=== PATIENT | female | born 1975 | race Caucasian/White ===

== ENCOUNTER 2022-12-09 10:30 | Observation (INO) ==
[2022-12-09 11:10] LABS: Basophils # (auto) 0.04 K/uL (0-0.2); Basophils % (auto) 0.7 %; Eosinophils # (auto) 0.21 K/uL (0-0.50); Eosinophils % (auto) 3.6 %; Hematocrit (blood only) 40.6 % (34.1-44.9); Hemoglobin 13.4 g/dl (12.0-16.0); Immature Granulocytes # (auto) 0.01 K/uL (0.00-0.02); Immature Granulocytes % (auto) 0.2 %; Lymphocytes # (auto) 1.96 K/uL (1.2-3.4); Lymphocytes % (auto) 33.6 %; Mean Platelet Volume 9.8 fL (9.4-12.3); Monocytes # (auto) 0.32 K/uL (0.24-0.82); Monocytes % (auto) 5.5 %; Neutrophils % (auto) 56.4 %; Platelet Count 326 K/uL (130-400); RDW Coefficient of Variation 12.3 % (11.5-14.5); RDW Standard Deviation 41.1 fL (36.4-46.3); Red Blood Count 4.46 M/uL (3.93-5.22); White Blood Count 5.84 K/ul (4.8-10.8)
[2022-12-09 11:28] LABS: Albumin Globulin Ratio 1.6 (0.9-2); Albumin Level 4.3 gm/dl (3.4-5.0); BUN Creatinine Ratio 11.1 (10-20); Bilirubin,Total 0.8 mg/dl (0.2-1.0); Calcium 8.9 mg/dl (8.5-10.1); Creatinine Clr Calc Pharmacy 103.1 ml/min; Est GFR (African American) 117.2 ml/min; Est GFR (Non-African American) 101.1 ml/min; Globulin 2.7 gm/dl (2.5-4.0); Potassium 3.9 mmol/L (3.5-5.1)
[2022-12-09 11:33] LABS: POC Urine Bilirubin Negative (Negative); POC Urine Blood Negative (Negative); POC Urine Glucose Normal (Normal); POC Urine Ketones Negative (Negative); POC Urine Leukocytes 1+ (Negative); POC Urine Nitrite Negative (Negative); POC Urine Protein 1+ (Negative); POC Urine Urobilinogen Normal (Normal); POC Urine pH 8 (4.5-7.5)
[2022-12-09] MEDS ORDERED: KETOROLAC TROMETHAMINE 15 MG/ML VIAL IV ONE (11:38)
--- NOTE | 2022-12-09 11:57 | Emergency Department Note ---
History of Present Illness General Chief complaint: Flank Pain Stated complaint: REFERRED BY Lisa SCHWARTZ SIDE FLANK PAIN Time Seen by Provider: 12/09/22 11:02 History of Present Illness Maximum Pain Intensity: 8 Patient is a 47-year-old female with past medical history significant for GERD, hypertension, restless leg syndrome, who presents emergency department for evaluation of left sided abdominal pain after having a colonoscopy yesterday. Procedure was at noon yesterday, performed by Dr. Dickson. It was a screening colonoscopy. She states that the procedure went well. She began to notice pain in the left lateral abdomen when she came out of anesthesia, and mentioned to the staff there but nothing was done. She states that the pain persisted, and has progressively gotten worse since the procedure yesterday. She states it runs from the left hip to the left upper rib cage, and then states the pain in her ribs that she was up into the left chest when she takes a deep breath. She is passing gas, she was able to eat, but did not have much of an appetite. There is been no vomiting. She has not had a bowel movement. She tried taking ibuprofen last night without relief. She currently rates her pain an 8/10. She was little bit nauseous this morning. She called the doctor's office, and they got back to her later this morning and suggested she go to the emergency departm ent for evaluation. Home Medications Medication Instructions Recorded Confirmed Type omeprazole 20 mg capsule,delayed 20 mg PO DAILYBB 02/20/19 12/09/22 History release lorazepam 1 mg tablet 1 mg PO HS PRN Sleep 11/20/20 12/09/22 History norethindrone 1.5 mg-ethinyl 1 tab PO DAILY 12/09/22 12/09/22 History estradiol 30 mcg(21)/iron 75 mg(7) tablet (Stella Fe 1.5/30 (28)) ropinirole 1 mg tablet 1 mg PO QPM 12/09/22 12/09/22 History semaglutide 1 mg/dose (4 mg/3 mL) 1 mg subcut WK 12/09/22 12/09/22 History subcutaneous pen injector (Ozempic) semaglutide 7 mg tablet (Rybelsus) 7 mg PO DAILY 12/09/22 12/09/22 History Allergies Allergy/AdvReac Type Severity Reaction Status Date / Time lisinopril Allergy Severe angioedema Verified 12/09/22 16:35 acetazolamide Allergy Unknown . Verified 12/09/22 16:35 amoxicillin Allergy Unknown . Verified 12/09/22 16:35 prochlorperazine Allergy Unknown . Verified 12/09/22 16:35 Past Med/Surg History Medical History DJD (degenerative joint disease) GERD (gastroesophageal reflux disease) Hypertension Ovarian cyst Restless leg syndrome Surgical History H/O wisdom tooth extraction History of colonoscopy History of esophagogastroduodenoscopy (EGD) History of facial surgery History of lumbar discectomy Social History Smoking Status: Never smoker Second Hand Exposure: No; Do You Dip or Chew Tobacco: No; Tobacco Cessation Education Requested by Patient: No Hx Alcohol Use: Yes Alcohol type: wine Hx Substance Use: No Preferred Language: Kiswahili Communication Ability: Effective Oxygen Equipment Technician Required: No Beliefs That Will Affect Care: None Current Living Situation: Spouse Other Information That Helps Us Care for You: No Feels Safe at Home: Yes Assistive Devices: None Review of Systems A total of 10 systems reviewed and were otherwise negative Physical Exam Vital Signs Vital Signs - 24 hr 12/09/22 10:36 Temperature 36.4 C L Temperature Source Temporal Artery Scan Pulse Rate 78 Pulse Rhythm Regular Respiratory Rate 16 Respiratory Effort / Characteristics Non-Labored Spontaneous Respiratory Depth Normal Blood Pressure 148/84 H Blood Pressure Mean 105 Pulse Oximetry 97 Oxygen Delivery Method Room Air Sepsis Recent Fever Within 48 Hours No Sepsis New/Unexplained Change in Mental Status No Sepsis Action Taken by Nursing No Action Required CONSTITUTIONAL: Patient is a well-appearing 47-year-old female who is awake and alert and in mild distress due to her stated complaint laying on the gurney. EYES: Pupils equal, round, reactive to light and accommodation. EOMs intact without nystagmus. Sclera are anicteric. CARDIOVASCULAR: Regular rate and rhythm. Peripheral pulses easy to palpable. RESPIRATORY: Breath sounds equal and clear to auscultation. Full and equal chest expansion without accessory muscle use or retractions. GI: Bowel sounds are present. The abdomen is soft, nondistended, tender to percussion in the suprapubic region, the left lower quadrant and the left upper quadrant. She is tender to palpation in these areas as well, but no guarding or rigidity. No rebound tenderness. The right side of the abdomen is benign. No organomegaly. No pulsatile masses. MUSCULOSKELETAL: Full range of motion of extremities x 4 with good strength. No cyanosis, edema, joint tenderness or swelling. No deformity. INTEGUMENTARY: No lesions or rash, normal skin turgor. LYMPH: No lymphadenopathy. Course Course The patient was seen and evaluated as above. External medical records are reviewed. She presents the emergency department for evaluation of left-sided abdominal pain after having a colonoscopy yesterday. IV lock was initiated and laboratory studies were collected. CBC with differential, CMP, lipase and urin alysis were performed. She initially declined narcotic medication and requested Toradol, she was given 10 mg IV. KUB and single view chest x-rays were obtained. Blood work notes a normal white count. No anemia. No electrolyte or renal function abnormalities noted. Transaminases are normal. Urine microscopy notes leukocyte Estrace, trace WBCs and RBCs with 1+ bacteria. Sample is contaminated with greater than 30 epithelial cells. Culture is pending. Chest x-ray is clear. No pneumothorax. No pleural effusion. KUB notes a nonobstructive bowel gas pattern. No pneumoperitoneum or pneumatosis. Patient was reassessed. Laboratory studies, x-rays were reviewed with her. She had little relief with the Toradol, and was agreeable to something additional for her pain. She was given fentanyl 50 mcg and Zofran 4 mg IV. Discussed with her ordering a CT scan of the abdomen and pelvis to evaluate her pain and she was in agreement. CT scan notes trace perisplenic fluid which measures above water attenuation is concerning for trace perisplenic hemorrhage, raising the possibility of a splenic injury. No active extravasation. No discrete splenic laceration identified. No pneumoperitoneum. No bowel wall thickening. Patient case was reviewed with attending physician, Dr. Henao. Patient was reassessed. CT scan findings were reviewed with her. She did report that her pain and improved, and rated it a 4/10. She did request additional medication for pain however and was given additional fentanyl 50 mcg IV. Her case was reviewed with general surgery, Dr. Forman and Beverley Cárdenas PA-C who evaluated the patient in the emergency department, and have agreed to admit her for monitoring. Please refer to surgical H&P for further information. Administered Medications Sodium Chloride (Nss 1000ml) 1,000 mls @ 80 mls/hr IV .[id number] MARYBEL Stop: 01/08/23 17:43 Last Admin: 12/09/22 18:10 Dose: 80 mls/hr Documented By: PRATIBHA Oxycodone HCl (Oxycodone Hcl Ir 5 Mg Tab (Immediate Release)) 5 mg PO Q4H PRN PRN Reason: MODERATE Pain (4,5,6) & Pre PT Stop: 12/23/22 17:43 Last Admin: 12/09/22 19:19 Dose: 5 mg Documented By: YANCY Ropinirole HCl (Ropinirole Hcl 0.25 Mg Tablet) 0.5 mg PO HS [facility] Stop: 01/08/23 20:59 Last Admin: 12/09/22 20:18 Dose: 0.5 mg Documented By: YANCY Discontinued Medications Fentanyl Citrate (Fentanyl Citrate 100 Mcg/2 Ml Vial) 50 mcg IV NOW STA Stop: 12/09/22 12:41 Last Admin: 12/09/22 12:52 Dose: 50 mcg Documented By: APOLONIA Fentanyl Citrate (Fentanyl Citrate 100 Mcg/2 Ml Vial) 50 mcg IV NOW STA Stop: 12/09/22 15:10 Last Admin: 12/09/22 15:25 Dose: 50 mcg Documented By: APOLONIA Sodium Chloride (Nss 1000ml) 1,000 mls @ 250 mls/hr IV .Q4H MARYBEL Stop: 01/08/23 15:59 Last Infusion: 12/09/22 18:09 Dose: 0 mls/hr Documented By: Admin: 12/09/22 15:58 Dose: 250 mls/hr Documented By: APOLONIA Ioversol (Optiray 350 100ml) 94 ml IV ONCE ONE Stop: 12/09/22 13:14 Last Admin: 12/09/22 13:13 Dose: 94 ml Documented By: JEFF Ketorolac Tromethamine (Ketorolac Tromethamine 15 Mg/Ml Vial) 10 mg IV NOW ONE Stop: 12/09/22 11:39 Last Admin: 12/09/22 11:53 Dose: 10 mg Documented By: APOLONIA Ondansetron HCl (Ondansetron Inj 2 Mg/Ml 2 Ml Vial) 4 mg IV NOW STA Stop: 12/09/22 12:41 Last Admin: 12/09/22 12:50 Dose: 4 mg Documented By: APOLONIA Ondansetron HCl (Ondansetron Inj 2 Mg/Ml 2 Ml Vial) 4 mg IV NOW STA Stop: 12/09/22 15:53 Last Admin: 12/09/22 15:55 Dose: 4 mg Documented By: APOLONIA Medical Decision Making Differential Diagnosis Differential diagnoses considered include urinary tract infection, kidney infection, kidney stone, bowel perforation, colonic distention, splenic injury, abscess, perforation, obstruction, among others. Medical Records Attestation: I reviewed the patient's medical records. Home Medications Current Medication List: was personally reviewed by me Laboratory Data Attestation: I reviewed the patient's lab results. 12/09/22 10:50 12/09/22 10:50 Lab Results 12/09/22 12/09/22 12/09/22 Range/Units 10:50 10:50 11:15 WBC 5.84 (4.8-10.8) K/ul RBC 4.46 (3.93-5.22) M/uL Hgb 13.4 (12.0-16.0) g/dl Hct 40.6 (34.1-44.9) % MCV 91.0 (80.0-100.0) fL MCH 30.0 (25.0-34.0) pg MCHC 33.0 (32.0-36.0) g/dL RDW Std Deviation 41.1 (36.4-46.3) fL RDW Coeff of Angela 12.3 (11.5-14.5) % Plt Count 326 (130-400) K/uL MPV 9.8 (9.4-12.3) fL Immature Gran % (Auto) 0.2 % Neut % (Auto) 56.4 % Lymph % (Auto) 33.6 % [place] % (Auto) 5.5 % Eos % (Auto) 3.6 % Baso % (Auto) 0.7 % Neut # (Auto) 3.30 (1.4-6.5) K/uL Lymph # (Auto) 1.96 (1.2-3.4) K/uL [place] # (Auto) 0.32 (0.24-0.82) K/uL Eos # (Auto) 0.21 (0-0.50) K/uL Baso # (Auto) 0.04 (0-0.2) K/uL Immature Gran # (Auto) 0.01 (0.00-0.02) K/uL Sodium 139 (136-145) mmol/L Potassium 3.9 (3.5-5.1) mmol/L Chloride 107 (98-107) mmol/L Carbon Dioxide 25 (21-32) mmol/L Anion Gap 7 (3-11) BUN 8 (6-23) mg/dl Creatinine 0.72 (0.6-1.2) mg/dl Est Cr Clr Drug Dosing 103.1 ml/min Est GFR ( Amer) 117.2 ml/min Est GFR (Non-Af Amer) 101.1 ml/min BUN/Creatinine Ratio 11.1 (10-20) Glucose 99 (70-99(Fasting)) mg/dl Calcium 8.9 (8.5-10.1) mg/dl Total Bilirubin 0.8 (0.2-1.0) mg/dl AST 11 L (13-39) U/L ALT 10 (7-52) U/L Alkaline Phosphatase 44 (34-104) U/L Total Protein 7.0 (6.0-8.3) gm/dl Albumin 4.3 (3.4-5.0) gm/dl Globulin 2.7 (2.5-4.0) gm/dl Albumin/Globulin Ratio 1.6 (0.9-2) Urine Color Yellow Urine Appearance Turbid A (Clear) Urine pH 8.5 H (4.5-7.5) POC Urine pH (4.5-7.5) Ur Specific [place] 1.016 (1.000-1.030) Urine Protein Negative (Negative) POC Urine Protein (Negative) Urine Glucose (UA) Negative (Negative) POC Ur Glucose (UA) (Normal) Urine Ketones Negative (Negative) POC Urine Ketones (Negative) Urine Blood Negative (Negative) POC Urine Blood (Negative) Urine Nitrite Negative (Negative) POC Urine Nitrite (Negative) Urine Bilirubin Negative (Negative) POC Urine Bilirubin (Negative) Urine Urobilinogen Negative (Negative) POC Urine Urobilinogen (Normal) Ur Leukocyte Esterase 2+ H (Negative) POC U Leukocyte Esteras (Negative) Urine WBC (Auto) 5-10 H (0-5) /hpf Urine RBC (Auto) 5-10 H (0-4) /hpf U Hyaline Cast (Auto) 1-5 (0-5) /lpf U Epithel Cells (Auto) >30 H (0-5) /lpf Urine Bacteria (Auto) 1+ H (Negative) 12/09/22 Range/Units 11:32 WBC (4.8-10.8) K/ul RBC (3.93-5.22) M/uL Hgb (12.0-16.0) g/dl Hct (34.1-44.9) % MCV (80.0-100.0) fL MCH (25.0-34.0) pg MCHC (32.0-36.0) g/dL RDW Std Deviation (36.4-46.3) fL RDW Coeff of Angela (11.5-14.5) % Plt Count (130-400) K/uL MPV (9.4-12.3) fL Immature Gran % (Auto) % Neut % (Auto) % Lymph % (Auto) % [place] % (Auto) % Eos % (Auto) % Baso % (Auto) % Neut # (Auto) (1.4-6.5) K/uL Lymph # (Auto) (1.2-3.4) K/uL [place] # (Auto) (0.24-0.82) K/uL Eos # (Auto) (0-0.50) K/uL Baso # (Auto) (0-0.2) K/uL Immature Gran # (Auto) (0.00-0.02) K/uL Sodium (136-145) mmol/L Potassium (3.5-5.1) mmol/L Chloride (98-107) mmol/L Carbon Dioxide (21-32) mmol/L Anion Gap (3-11) BUN (6-23) mg/dl Creatinine (0.6-1.2) mg/dl Est Cr Clr Drug Dosing ml/min Est GFR ( Amer) ml/min Est GFR (Non-Af Amer) ml/min BUN/Creatinine Ratio (10-20) Glucose (70-99(Fasting)) mg/dl Calcium (8.5-10.1) mg/dl Total Bilirubin (0.2-1.0) mg/dl AST (13-39) U/L ALT (7-52) U/L Alkaline Phosphatase (34-104) U/L Total Protein (6.0-8.3) gm/dl Albumin (3.4-5.0) gm/dl Globulin (2.5-4.0) gm/dl Albumin/Globulin Ratio (0.9-2) Urine Color Urine Appearance (Clear) Urine pH (4.5-7.5) POC Urine pH 8 H (4.5-7.5) Ur Specific [place] (1.000-1.030) Urine Protein (Negative) POC Urine Protein 1+ H (Negative) Urine Glucose (UA) (Negative) POC Ur Glucose (UA) Normal (Normal) Urine Ketones (Negative) POC Urine Ketones Negative (Negative) Urine Blood (Negative) POC Urine Blood Negative (Negative) Urine Nitrite (Negative) POC Urine Nitrite Negative (Negative) Urine Bilirubin (Negative) POC Urine Bilirubin Negative (Negative) Urine Urobilinogen (Negative) POC Urine Urobilinogen Normal (Normal) Ur Leukocyte Esterase (Negative) POC U Leukocyte Esteras 1+ H (Negative) Urine WBC (Auto) (0-5) /hpf Urine RBC (Auto) (0-4) /hpf U Hyaline Cast (Auto) (0-5) /lpf U Epithel Cells (Auto) (0-5) /lpf Urine Bacteria (Auto) (Negative) Imaging Data Attestation: I personally reviewed and interpreted this imaging study as fol lows: Radiologist's Impression: KUB X-Ray 12/09/22 11:03 KUB HISTORY: Acute left-sided rib and abdominal pain LEFT ABD PAIN, COLONOSCOPY YEST, EVAL PERFORATION COMPARISON: Chest radiograph of same day, CT abdomen and pelvis 08/16/2021 FINDINGS: Nonobstructive bowel gas pattern. Punctate metallic density focus is noted overlying S1. Pelvic basin calcifications suggestive of phleboliths. No renal calculi. No ureteral calculi. No pneumoperitoneum or pneumatosis. No fracture. IMPRESSION: Nonobstructive bowel gas pattern. ACT 112: Negative or not required by law. The above report was generated using voice recognition software. It may contain grammatical, syntax or spelling errors. Electronically signed by: Nhan Cortez M.D. 12/09/2022 12:13 PM Chest X-Ray 12/09/22 11:36 XR chest 1V portable HISTORY: LEFT RIB PAIN S/P COLONOSCOPY COMPARISON: Chest 11/20/2020. FINDINGS: The lungs are clear. Cardiac silhouette is normal in size. No pleural effusions. No pneumothorax. IMPRESSION: No acute process. ACT 112: Negative or not required by law. Electronically signed by: Jonn Christian M.D. 12/09/2022 12:15 PM Abdomen/Pelvis CT 12/09/22 12:40 CT OF THE ABDOMEN AND PELVIS WITH CONTRAST CLINICAL HISTORY: LEFT SIDED ABD PAIN S/P COLONOSCOPY COMPARISON STUDY: CT of the abdomen and pelvis August 16, 2021 and KUB performed earlier today TECHNIQUE: Following IV administration of 94 mL of Optiray, axial images of the abdomen and pelvis were obtained from the lung bases to the proximal femurs. Images were reviewed in the axial, sagittal, and coronal planes. IV contrast was administered without complication. Automated exposure control was utilized for the study. A dose lowering technique was utilized adhering to the principles of ALARA. CT DOSE: 378.63 mGy.cm FINDINGS: Lung bases are unremarkable. No pneumatosis, free air or portal venous gas is present. The liver, adrenal glands, kidneys and pancreas are normal with the exception of a few subcentimeter right renal lesions which are too small to characterize. There is no biliary or pancreatic ductal dilatation. Note is made of trace perisplenic fluid along the inferior aspect of the spleen. This measures above water attenuation. No discrete splenic laceration is identified. There is no active extravasation. Caliber and wall thickness of small and large bowel are normal. There is trace fluid within the pelvis. A 4.3 cm enhancing lesion within the right uterine fundus is unchanged since prior exam. This favors a fibroid. The ovaries are not enlarged. Major vasculature is patent. IMPRESSION: 1. No pneumoperitoneum. No bowel wall thickening. 2. Trace perisplenic fluid which measures above water attenuation. This favors trace perisplenic hemorrhage and raises the possibility of a splenic injury. No active extravasation. If progressive abdominal pain, short-term follow-up CT is recommended to ensure stability/resolution. 3. 4.3 cm fundal fibroid. ACT 112: Negative or not required by law. Electronically signed by: Franco Leon M.D. 12/09/2022 2:02 PM MDM Narrative See ED Course. Impression & Plan Splenic hemorrhage Discharge Plan Visit Data Chief Complaint: Flank Pain Stated Complaint: REFERRED BY Lisa SCHWARTZ SIDE FLANK PAIN ED Provider: Aubrey Henao ED Midlevel Provider: Mart Hensley Discharge Problem: Splenic hemorrhage Patient Disposition: Admitted As Inpatient Discharge Instructions Interventions: ED Discharge Assessment Last Done: 12/09/22 17:25
--- NOTE | 2022-12-09 12:14 | XRay Report ---
KUB HISTORY: Acute left-sided rib and abdominal pain LEFT ABD PAIN, COLONOSCOPY YEST, EVAL PERFORATION COMPARISON: Chest radiograph of same day, CT abdomen and pelvis 08/16/2021 FINDINGS: Nonobstructive bowel gas pattern. Punctate metallic density focus is noted overlying S1. Pe lvic basin calcifications suggestive of phleboliths. No renal calculi. No ureteral calculi. No pneum operitoneum or pneumatosis. No fracture. IMPRESSION: Nonobstructive bowel gas pattern. ACT 112: Negative or not required by law. The above report was generated using voice recognition software. It may contain grammatical, syntax o r spelling errors. Electronically signed by: Nhan Cortez M.D. 12/09/2022 12:13 PM
--- NOTE | 2022-12-09 12:16 | XRay Report ---
XR chest 1V portable HISTORY: LEFT RIB PAIN S/P COLONOSCOPY COMPARISON: Chest 11/20/2020. FINDINGS: The lungs are clear. Cardiac silhouette is normal in size. No pleural effusions. No pneumot horax. IMPRESSION: No acute process. ACT 112: Negative or not required by law. Electronically signed by: Jonn Christian M.D. 12/09/2022 12:15 PM
[2022-12-09] MEDS ORDERED: ONDANSETRON INJ 2 MG/ML 2 ML VIAL IV STA ×2 (12:40→15:52)
[2022-12-09] MEDS ORDERED: fentaNYL citrate 100 MCG/2 ML VIAL IV STA ×2 (12:40→15:09)
[2022-12-09 12:45] LABS: Appearance Urine Turbid (Clear); Bacteria Urine Automated 1+ (Negative); Bilirubin Urine Negative (Negative); Blood Urine Negative (Negative); Color Urine Yellow; Epithelial Cell Urine Auto >30 /lpf (0-5); Glucose Urine UA Negative (Negative); Ketones Urine Negative (Negative); Leukocyte Esterase Urine 2+ (Negative); Nitrite Urine Negative (Negative); Protein Urine Negative (Negative); Specific Gravity Urine 1.016 (1.000-1.030); Urobilinogen Urine Negative (Negative); pH Urine 8.5 (4.5-7.5)
[2022-12-09] MEDS ORDERED: OPTIRAY 350 100ml IV ONE (13:13)
--- NOTE | 2022-12-09 14:03 | CT Scan Report ---
CT OF THE ABDOMEN AND PELVIS WITH CONTRAST CLINICAL HISTORY: LEFT SIDED ABD PAIN S/P COLONOSCOPY COMPARISON STUDY: CT of the abdomen and pelvis August 16, 2021 and KUB performed earlier today TECHNIQUE: Following IV administration of 94 mL of Optiray, axial images of the abdomen and pelvis we re obtained from the lung bases to the proximal femurs. Images were reviewed in the axial, sagittal, and coronal planes. IV contrast was administered without complication. Automated exposure control wa s utilized for the study. A dose lowering technique was utilized adhering to the principles of ALARA . CT DOSE: 378.63 mGy.cm FINDINGS: Lung bases are unremarkable. No pneumatosis, free air or portal venous gas is present. The liver, adrenal glands, kidneys and pancreas are normal with the exception of a few subcentimeter righ t renal lesions which are too small to characterize. There is no biliary or pancreatic ductal dilatat ion. Note is made of trace perisplenic fluid along the inferior aspect of the spleen. This measures a mirella water attenuation. No discrete splenic laceration is identified. There is no active extravasatio n. Caliber and wall thickness of small and large bowel are normal. There is trace fluid within the pe lvis. A 4.3 cm enhancing lesion within the right uterine fundus is unchanged since prior exam. This f avors a fibroid. The ovaries are not enlarged. Major vasculature is patent. IMPRESSION: 1. No pneumoperitoneum. No bowel wall thickening. 2. Trace perisplenic fluid which measures above water attenuation. This favors trace perisplenic hemo rrhage and raises the possibility of a splenic injury. No active extravasation. If progressive abdomi nal pain, short-term follow-up CT is recommended to ensure stability/resolution. 3. 4.3 cm fundal fibroid. ACT 112: Negative or not required by law. Electronically signed by: Franco Leon M.D. 12/09/2022 2:02 PM
[2022-12-09] MEDS ORDERED: SODIUM CHLORIDE 0.9% 1000ML 1,000 ML IV SCH (16:00)
--- NOTE | 2022-12-09 16:05 | History & Physical Report ---
Date of Service December 09, 2022 Assessment & Plan (1) Splenic hemorrhage: Plan: This is a 47y F with a PMH of GERD who presents to the [facility] on 12/09/22 with complaints of left sided flank pain after undergoing an outpatient colonoscopy yesterday. Due to the severity of the pain she presented to the ER where she underwent a CT a/p that showed trace perisplenic fluid, favoring hemorrhage, raising the possibility of a splenic injury. There is no active extravasation or pneumoperitoneum. Patient's vital signs are stable and she is not tachycardic or hypotensive. Labs show stable Hbg at 13.4, Cr: 0.7. On exam patient's abdomen is soft, non distended, with mild discomfort across the mid/upper left abdomen. No indications for acute surgical intervention. This should resolve with time and supportive care. Given severity of pain upon presentation we will admit the patient for overnight observation and keep comfortable with nausea/pain meds should she need them. Will repeat H/H tomorrow morning unless any clinical changes overnight. Clear liquids okay for now, if stable will advance tomorrow and likely discharge to home. History of Present Illness Primary Care Provider: Luigi Mtz MD This is a 47y F with a PMH of GERD who presents to the [facility] ED on 12/09/22 with complaints of left sided flank pain. Patient states she underwent a colonoscopy yesterday at [facility] with Dr. Dickson. Per patient she had a clean report. Following the procedure the patient developed left sided abdominal pain which was thought to be related to gas. She was discharged to home. Unfortunately her pain continued to worsen in severity rating it an 8/10 at its worst. It was made worse with movement, deep breaths, and eating. She felt it radiate to her shoulder and it felt stabbing in nature when she would eat. Due to the pain she presented to the ER where she underwent a CT a/p that showed trace perisplenic fluid, favoring hemorrhage, raising the possibility of a splenic injury. There is no active extravasation or pneumoperitoneum. The patient denies n/v, fevers/chills. No prior abdominal surgical history. No BM since yesterday. Only had water this morning. No recent trauma/falls/vehicle accidents. Allergies Allergy/AdvReac Type Severity Reaction Status Date / Time lisinopril Allergy Severe angioedema Verified 12/09/22 16:35 acetazolamide Allergy Unknown . Verified 12/09/22 16:35 amoxicillin Allergy Unknown . Verified 12/09/22 16:35 prochlorperazine Allergy Unknown . Verified 12/09/22 16:35 Home Medications Medication Instructions Recorded Confirmed Type omeprazole 20 mg capsule,delayed 20 mg PO DAILYBB 02/20/19 12/09/22 History release lorazepam 1 mg tablet 1 mg PO HS PRN Sleep 11/20/20 12/09/22 History norethindrone 1.5 mg-ethinyl 1 tab PO DAILY 12/09/22 12/09/22 History estradiol 30 mcg(21)/iron 75 mg(7) tablet (Stella Fe 1.5/30 (28)) ropinirole 1 mg tablet 1 mg PO QPM 12/09/22 12/09/22 History semaglutide 1 mg/dose (4 mg/3 mL) 1 mg subcut WK 12/09/22 12/09/22 History subcutaneous pen injector (Ozempic) semaglutide 7 mg tablet (Rybelsus) 7 mg PO DAILY 12/09/22 12/09/22 History oxycodone 5 mg tablet 5 - 10 mg PO .[id number] PRN pain, 12/10/22 Rx for initial therapy, max 6 tabs per day #5 tabs Past Med/Surg History Medical History DJD (degenerative joint disease) GERD (gastroesophageal reflux disease) Hypertension Ovarian cyst Restless leg syndrome Surgical History H/O wisdom tooth extraction History of colonoscopy History of esophagogastroduodenoscopy (EGD) History of facial surgery History of lumbar discectomy Social History Smoking Status: Never smoker Second Hand Exposure: No; Do You Dip or Chew Tobacco: No; Tobacco Cessation Education Requested by Patient: No Hx Alcohol Use: Yes Alcohol type: wine Hx Substance Use: No Preferred Language: Polish Communication Ability: Effective Surgical Brace Maker Required: No Beliefs That Will Affect Care: None Current Living Situation: Spouse Other Information That Helps Us Care for You: No Feels Safe at Home: Yes Assistive Devices: None Review of Systems Constitutional: no fever and no chills Respiratory: pain into L shoulder with deep breathing Cardiovascular: no chest pain Gastrointestinal: + abdominal pain (left sided, radiates to shoulder); no nausea, no vomiting and no blood in stools Physical Exam Physical Exam: awake, alert, no distress Constitutional: well developed and well nourished; no acute distress Respiratory: normal respiratory effort Cardiovascular: Rate/Rhythm: regular rate Gastrointestinal (Abdomen): Inspection/Auscultation: abdomen not distended Percussion/Palpation: + abdomen tender (discomfort elicited across L mid/upper abdomen) and abdomen soft Results & Data Results & Data ([facility]) Vital Signs (Past 12 Hours) Vital Signs Temp Pulse Resp BP Pulse Ox O2 Del Method 12/09/22 10:36 36.4 C L 78 16 148/84 H 97 [address] Air Diagnostic Findings [address] OF THE ABDOMEN AND PELVIS WITH CONTRAST CLINICAL HISTORY: LEFT SIDED ABD PAIN S/P COLONOSCOPY COMPARISON STUDY: CT of the abdomen and pelvis August 16, 2021 and KUB performed earlier today TECHNIQUE: Following IV administration of 94 mL of Optiray, axial images of the abdomen and pelvis were obtained from the lung bases to the proximal femurs. Images were reviewed in the axial, sagittal, and coronal planes. IV contrast was administered without complication. Automated exposure control was utilized for the study. A dose lowering technique was utilized adhering to the principles of ALARA. CT DOSE: 378.63 mGy.cm FINDINGS: Lung bases are unremarkable. No pneumatosis, free air or portal venous gas is present. The liver, adrenal glands, kidneys and pancreas are normal with the exception of a few subcentimeter right renal lesions which are too small to characterize. There is no biliary or pancreatic ductal dilatation. Note is made of trace perisplenic fluid along the inferior aspect of the spleen. This measures above water attenuation. No discrete splenic laceration is identified. There is no active extravasation. Caliber and wall thickness of small and large bowel are normal. There is trace fluid within the pelvis. A 4.3 cm enhancing lesion within the right uterine fundus is unchanged since prior exam. This favors a fibroid. The ovaries are not enlarged. Major vasculature is patent. IMPRESSION: 1. No pneumoperitoneum. No bowel wall thickening. 2. Trace perisplenic fluid which measures above water attenuation. This favors trace perisplenic hemorrhage and raises the possibility of a splenic injury. No active extravasation. If progressive abdominal pain, short-term follow-up CT is recommended to ensure stability/resolution. 3. 4.3 cm fundal fibroid. ACT 112: Negative or not required by law. Electronically signed by: Franco Leon M.D. 12/09/2022 2:02 PM PG Care Time/CCT Total # of Minutes Spent Total Time Spent with Patient: Total time spent is greater than 50% in coordination of care (as documented) at patient's floor/unit and/or counseling patient: Coding Level of Care Code 10280 INT INP/OBS CARE 140MIN Diagnoses Splenic hemorrhage D73.5
[2022-12-09] MEDS ORDERED: ACETAMINOPHEN 325 MG TAB PO PRN (17:44)
[2022-12-09] MEDS ORDERED: ONDANSETRON INJ 2 MG/ML 2 ML VIAL IV PRN (17:44)
[2022-12-09] MEDS ORDERED: LORazepam 1 MG TAB PO PRN (17:44)
[2022-12-09] MEDS ORDERED: MoRPHine SULFATE 2 MG/ML CARP IV PRN (17:44)
[2022-12-09] MEDS: SODIUM CHLORIDE 0.9% 1000ML 1,000 ML IV SCH (18:10)
[2022-12-09] MEDS: oxyCODONE HCL IR 5 MG TAB (IMMEDIATE RELEASE) PO PRN (19:19)
[2022-12-09] MEDS ORDERED: rOPINIRole HCL 0.25 MG TABLET PO SCH (21:00)
[2022-12-10] MEDS: oxyCODONE HCL IR 5 MG TAB (IMMEDIATE RELEASE) PO PRN (06:00)
[2022-12-10] MEDS: SODIUM CHLORIDE 0.9% 1000ML 1,000 ML IV SCH (06:01)
[2022-12-10 08:05] LABS: Basophils # (auto) 0.03 K/uL (0-0.2); Basophils % (auto) 0.6 %; Eosinophils # (auto) 0.31 K/uL (0-0.50); Eosinophils % (auto) 5.9 %; Hematocrit (blood only) 36.7 % (34.1-44.9); Immature Granulocytes # (auto) 0.01 K/uL (0.00-0.02); Immature Granulocytes % (auto) 0.2 %; Lymphocytes # (auto) 1.98 K/uL (1.2-3.4); Lymphocytes % (auto) 37.6 %; Mean Corpuscular Hemoglobin 29.6 pg (25.0-34.0); Mean Corpuscular Hgb Conc 32.7 g/dL (32.0-36.0); Mean Corpuscular Volume 90.6 fL (80.0-100.0); Mean Platelet Volume 10.2 fL (9.4-12.3); Monocytes # (auto) 0.37 K/uL (0.24-0.82); Neutrophils # (auto) 2.57 K/uL (1.4-6.5); Neutrophils % (auto) 48.7 %; Platelet Count 281 K/uL (130-400); RDW Coefficient of Variation 12.1 % (11.5-14.5); RDW Standard Deviation 40.4 fL (36.4-46.3); Red Blood Count 4.05 M/uL (3.93-5.22); White Blood Count 5.27 K/ul (4.8-10.8)
[2022-12-10 08:23] LABS: Calcium 8.5 mg/dl (8.5-10.1); Creatinine Clr Calc Pharmacy 110.8 ml/min; Est GFR (Non-African American) 106.2 ml/min; Potassium 4.2 mmol/L (3.5-5.1)
[2022-12-10] MEDS ORDERED: PANTOprazole 40 MG TAB PO SCH (09:00)
[2022-12-10 11:18] LABS: BUN Creatinine Ratio 7.5 (10-20)
--- NOTE | 2022-12-10 12:33 | Surgery Progress Note ---
Date of Service December 10, 2022 Assessment & Plan (1) Splenic hemorrhage: Plan: patient here with concern for splenic injury (trace perisplenic fluid collection concerning for blood noted on CT) s/p colonoscopy 2 days ago pain is overall improving patients vitals are stable and Hbg 12 (13) advance diet as tolerates okay to discharge to home. dispo instructions reviewed. may f/u with her PCP as outpt return precautions given as above. pt seen. feeling better. minimal tenderness. hemodynamically stable ok for d/c. signs/symptoms to return to ER discussed. Admission and Anticipated Discharge Date Admission Date: December 09, 2022 Subjective Patient feeling better than yesterday. Tolerating advancement in diet. Pain overall controlled, but required some narcotic this AM after she coughed and had some pain. Physical Exam Physical Exam: awake/alert, no distress Respiratory: normal respiratory effort Gastrointestinal (Abdomen): Inspection/Auscultation: abdomen not distended Percussion/Palpation: + abdomen tender (mild discomfort along left side of abdomen) and abdomen soft Results & Data ([facility]) Vital Signs (Past 12 Hours) Vital Signs Temp Pulse Resp BP Pulse Ox O2 Del Method 12/10/22 08:27 36.8 C 55 L 16 137/80 97 Room Air 12/10/22 06:03 37.0 C 65 16 134/86 96 Room Air PG Care Time/CCT Total # of Minutes Spent Total Time Spent with Patient: Total time spent is greater than 50% in coordination of care (as documented) at patient's floor/unit and/or counseling patient: Coding Level of Care Code 55895 SUB INP/OBS CARE 2/35MIN Diagnoses Splenic hemorrhage D73.5
--- NOTE | 2022-12-10 14:03 | Discharge Summary ---
Date of Service December 10, 2022 Admission HPI Per Admitting Provider This is a 47y F with a PMH of GERD who presents to the [facility] ED on 12/09/22 with complaints of left sided flank pain. Patient states she underwent a colonoscopy yesterday at [facility] with Dr. Dickson. Per patient she had a clean report. Following the procedure the patient developed left sided abdominal pain which was thought to be related to gas. She was discharged to home. Unfortunately her pain continued to worsen in severity rating it an 8/10 at its worst. It was made worse with movement, deep breaths, and eating. She felt it radiate to her shoulder and it felt stabbing in nature when she would eat. Due to the pain she presented to the ER where she underwent a CT a/p that showed trace perisplenic fluid, favoring hemorrhage, raising the possibility of a splenic injury. There is no active extravasation or pneumoperitoneum. The patient denies n/v, fevers/chills. No prior abdominal surgical history. No BM since yesterday. Only had water this morning. No recent trauma/falls/vehicle accidents. Principal Diagnosis splenic hemorrhage GERD Discharge Exam awake/alert, no distress Constitutional well developed and well nourished; no acute distress Respiratory normal respiratory effort Cardiovascular Rate/Rhythm: regular rate Gastrointestinal (Abdomen) Inspection/Auscultation: abdomen not distended Percussion/Palpation: + abdomen tender (mild discomfort along left side of abdomen) and abdomen soft Discharge Data Allergies Allergy/AdvReac Type Severity Reaction Status Date / Time lisinopril Allergy Severe angioedema Verified 12/09/22 16:35 acetazolamide Allergy Unknown . Verified 12/09/22 16:35 amoxicillin Allergy Unknown . Verified 12/09/22 16:35 prochlorperazine Allergy Unknown . Verified 12/09/22 16:35 Consultations 12/09/22 15:47 ED Decision to Admit Stat Ordered Studies 12/09/22 12:40 CT abd pelvis IV con only Stat Hospital Course (1) Splenic hemorrhage: This is a 47yF who presented to the [facility] ED on 12/09/22 with complaints of left sided abdominal pain. She recently underwent a colonoscopy on 12/08 and immediately had pain thereafter which was thought to be related to gas pains. Unfortunately her pain persisted and she presented to the ER. A CT a/p was performed that revealed trace perisplenic fluid which favors a trace perisplenic hemorrhage and raises the possibility of a splenic injury. No active extravasation. Hbg 13. Vital signs stable. Abdomen soft, non distended, with mild tenderness to palpation in the L mid/upper abdomen. The patient was admitted for overnight observation and pain/nausea control. On 12/10 the patient's pain was improved. Her diet was advanced from clears to regular without issue. Hbg stable at 12 and vitals stable as well. She was deemed appropriate for discharge to home. Dispo instructions and return precautions reviewed. She was asked to follow up with her PCP within 1-2 weeks for follow up. Total Time Total Time Spent Total Time Spent (In Minutes): 15 Discharge Plan Discharge Items Patient Disposition: Home - Self-Care Reason For Visit: SPLENIC INJURY Discharge Diagnosis: splenic injury Activity: Per Instructions section Activity Comment: light activity over the next few weeks as your symptoms improve Lifting: Gradually increase as tolerated Bathing: No limitations Exercise/Sports: Gradually increase as tolerated Driving/Machine Use: no driving if taking narcotics for pain Non-emergency contact: Primary Care Provider Call non-emergency contact if: you have any medication questions, your symptoms worsen, your pain is worsening, you have a fever and your temperature is above 101.5 Follow-up/Referrals: Gil Forman DO [Surgeon] - (You do not need to follow up with us in the office unless you have any questions/concerns) Luigi Mtz MD [Primary Care Provider] - Diet: Regular Addtl Attending Provider Instructions: small frequent meals over the next several days until your symptoms improved may purchase tylenol over the counter if needed for pain control. take per manufacturers instructions Pending Studies at Discharge: No Stand-Alone Forms: My [employer], Smoking Cessation Medications and DC Order Prescriptions: New oxycodone 5 mg tablet 5 - 10 mg PO [id number] PRN (Reason: pain, for initial therapy, max 6 tabs per day) Qty: 5 0RF Continued omeprazole 20 mg capsule,delayed release(DR/EC) 20 mg PO DAILYBB lorazepam 1 mg tablet 1 mg PO HS PRN (Reason: Sleep) Rybelsus 7 mg tablet 7 mg PO DAILY ropinirole 1 mg tablet 1 mg PO QPM Rx Instructions: take 1 hour before bedtime with food norethindrone-e.estradiol-iron [Stella Fe 1.5/30 (28)] 1.5 mg-30 mcg (21)/75 mg (7) tablet 1 tab PO DAILY Ozempic 1 mg/dose (4 mg/3 mL) pen injector 1 mg SUBCUT WK Discharge Orders: Discharge Order (Routine); Ordered 12/10/22 Ordered By: Beverley Goff/Other Patient Handouts: Abdominal Pain Admission Data Admit Date/Time: 12/09/22 15:55 Attending Provider: Gil Forman Admit Provider: Gil Forman Primary Care Provider: Luigi Mtz Other Providers: Gil Forman Other Interventions: Discharge Summary Assessment (RN) Last Done: 12/10/22 11:41 Coding Level of Care Code HOSP INP/OBS DISCH 30 MIN/LESS Diagnoses Splenic hemorrhage D73.5
== END 2022-12-10 12:15 | disposition home or self-care (01) ==
LOC: ED 10:30 → 3W 10:30

== ENCOUNTER 2025-06-05 19:57 | Observation (INO) ==
[2025-06-05] MEDS: ASPIRIN CHEW 324 MG PO STA (20:16)
[2025-06-05] MEDS: SODIUM CHLORIDE 0.9% 1,000 ML IV STA (20:17)
[2025-06-05] MEDS: NITROGLYCERIN SL 0.4 MG/TAB TAB SL PRN (20:17)
--- NOTE | 2025-06-05 20:28 | Emergency Department Note ---
History of Present Illness General Chief Complaint: Chest Pain Stated Complaint: CHEST PAIN Time Seen by Provider: 06/05/25 20:07 History of Present Illness Provider Complaint: chest pain Onset (ago): hour(s) 1 Duration: constant Onset: during rest Pain Location: substernal Pain Radiation: neck and jaw/teeth Maximum Pain Intensity: 8 Current Pain Intensity: 8 Quality: + tightness and + heaviness Relieved By: + nothing Exacerbated By: + nothing Context: no recent illness, no recent surgery, no recent immobilization, no recent travel, no trauma/injury, no new medications or no history of DVT/PE Associated symptoms: + dyspnea; no nausea, no syncope, no palpitations, no fever, no cough or no leg swelling Treatments prior to arrival: none Home Medications Medication Instructions Recorded Confirmed Type lorazepam 1 mg tablet 1 mg PO HS PRN Sleep 11/20/20 06/05/25 History gabapentin 300 mg capsule 300 mg PO HS 09/16/23 06/05/25 History ropinirole 2 mg tablet 2 mg PO HS 09/16/23 06/05/25 History cholecalciferol (vitamin D3) 125 125 mcg PO DAILY 06/05/25 06/05/25 History mcg (5,000 unit) tablet (Vitamin D3) ipratropium bromide 42 mcg (0.06 1 spray intranasal BID PRN Nasal 06/05/25 06/05/25 History %) nasal spray Congestion loratadine 10 mg tablet (Claritin) 10 mg PO DAILY 06/05/25 06/05/25 History omeprazole 40 mg capsule,delayed 40 mg PO DAILYBB 06/05/25 06/05/25 History release topiramate 25 mg tablet 25 mg PO DAILY 06/05/25 06/05/25 History Allergies Allergy/AdvReac Type Severity Reaction Status Date / Time lisinopril Allergy Severe angioedema Verified 06/05/25 21:05 amoxicillin Allergy Intermediate Rash Verified 06/05/25 21:05 acetazolamide AdvReac Severe Reaction: Verified 06/05/25 21:05 Numb through whole body prochlorperazine AdvReac Severe PANIC Verified 06/05/25 21:05 ATTACK benzonatate AdvReac Intermediate NAUSEA/VOMI Verified 06/05/25 21:05 TING Past Med/Surg History Problem List (Updated 06/05/25 @ 21:41 by Camacho Infante MD) Chest pain (Acute) Restless leg syndrome Hypertension (Chronic) GERD (gastroesophageal reflux disease) (Chronic) Splenic hemorrhage (Acute) Medical History DJD (degenerative joint disease) Ovarian cyst Surgical History History of hysterectomy H/O wisdom tooth extraction History of facial surgery History of lumbar discectomy History of colonoscopy History of esophagogastroduodenoscopy (EGD) Social History Smoking Status: Never smoker Second Hand Exposure: No; Do You Dip or Chew Tobacco: No; Hx Alcohol Use: Yes Alcohol type: wine Hx Substance Use: No Preferred Language: [place] Communication Ability: Effective 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 Beliefs That Will Affect Care: None Current Living Situation: Spouse Feels Safe at Home: Yes Assistive Devices: None Physical Exam Vital Signs Vital Signs - 24 hr 06/05/25 19:58 06/05/25 20:05 06/05/25 20:20 Temperature 36.7 C Temperature Source Temporal Artery Scan Pulse Rate 92 H 74 Pulse Rate [Apical] 76 Pulse Rhythm Regular Pulse Strength Normal Respiratory Rate 20 Respiratory Effort / Characteristics Non-Labored Spontaneous Respiratory Depth Normal Respiratory Pattern Regular Blood Pressure 197/111 H Blood Pressure [Right Arm] Blood Pressure Mean 139 Blood Pressure Mean [Right Arm] Blood Pressure Position Sitting Pulse Oximetry 100 Oxygen Delivery Method Room Air Sepsis Recent Fever Within 48 Hours No Sepsis New/Unexplained Change in Mental Status No Sepsis Action Taken by Nursing No Action Required 06/05/25 20:30 06/05/25 20:56 06/05/25 21:25 Temperature Temperature Source Pulse Rate 86 Pulse Rate [Apical] 69 Pulse Rhythm Pulse Strength Respiratory Rate 19 19 Respiratory Effort / Characteristics Non-Labored Spontaneous Respiratory Depth Normal Respiratory Pattern Regular Blood Pressure 146/96 H Blood Pressure [Right Arm] 170/102 H Blood Pressure Mean 112 Blood Pressure Mean [Right Arm] 124 Blood Pressure Position Pulse Oximetry 99 99 96 Oxygen Delivery Method Room Air Room Air Room Air Sepsis Recent Fever Within 48 Hours Sepsis New/Unexplained Change in Mental Status Sepsis Action Taken by Nursing Physical Exam GENERAL: oriented to person, place, and time. appears well-developed and well- nourished. HENT: Exam performed. - Head: Normocephalic and atraumatic. EYES: Conjunctivae and EOM are normal. Right eye exhibits no discharge. Left eye exhibits no discharge. No scleral icterus. NECK: Normal range of motion. Neck supple. No JVD present. CV: Normal rate, regular rhythm, normal heart sounds and intact distal pulses. There is no peripheral edema. Palpable radial pulses bue. PULM/CHEST: Effort normal and breath sounds normal. No respiratory distress. No stridor. no wheezes. no rales. ABD: The abdomen is soft. There is no tenderness. NEURO: Motor and sensation grossly intact. SKIN: Skin is warm and dry. He is not diaphoretic. PSYCH: normal mood and affect. Behavior is normal. Judgment and thought content normal. Course Course 2006: The patient was evaluated in room C4. A complete history and physical exam was performed Cardiac monitoring: An order was placed for continuous cardiac monitoring. The monitor shows a rate of 80 with sinus rhythm interpreted by in 2026: Patient reports her chest pain is improved 4 of 10 status post 1 sublingual nitroglycerin. 2038: Vital signs stable. Patient reports her chest pain has resolved status post second sublingual nitroglycerin. 2099: Vital signs stable. Patient reporting no chest pain or difficulty breathing at this time. Labs and imaging are unremarkable. [facility]. Administered Medications Nitroglycerin (Nitroglycerin Sl 0.4 Mg/Tab Tab) 0.4 mg SL Q5M PRN PRN Reason: Chest Pain Stop: 07/05/25 20:12 Last Admin: 06/05/25 20:26 Dose: 0.4 mg Documented By: Admin: 06/05/25 20:17 Dose: 0.4 mg Documented By: JEVON Discontinued Medications Aspirin (Aspirin Chew 324 Mg) 324 mg PO NOW STA Stop: 06/05/25 20:14 Last Admin: 06/05/25 20:16 Dose: 324 mg Documented By: JEVON Sodium Chloride (Nss) 1,000 mls @ 999 mls/hr IV .Q1H1M STA Stop: 06/05/25 21:13 Last Admin: 06/05/25 20:17 Dose: 999 mls/hr Documented By: JEVON Medical Decision Making Laboratory Data Attestation: I reviewed the patient's lab results. 06/05/25 20:45 06/05/25 20:14 Labs: Lab Results 06/05/25 06/05/25 Range/Units 20:14 20:45 WBC Cancelled 8.84 RBC Cancelled 4.41 Hgb Cancelled 13.2 Hct Cancelled 39.5 MCV Cancelled 89.6 MCH Cancelled 29.9 MCHC Cancelled 33.4 RDW Std Deviation Cancelled 40.7 RDW Coeff of Angela Cancelled 12.3 Plt Count Cancelled 339 MPV Cancelled 9.6 Immature Gran % (Auto) Cancelled 0.2 Neut % (Auto) Cancelled 58.5 Lymph % (Auto) Cancelled 30.2 [place] % (Auto) Cancelled 7.2 Eos % (Auto) Cancelled 3.6 Baso % (Auto) Cancelled 0.3 Neut # (Auto) Cancelled 5.16 Lymph # (Auto) Cancelled 2.67 [place] # (Auto) Cancelled 0.64 H Eos # (Auto) Cancelled 0.32 Baso # (Auto) Cancelled 0.03 Immature Gran # (Auto) Cancelled 0.02 Absolute Nucleated RBC Cancelled Nucleated RBC % (auto) Cancelled Neutrophils % (Manual) Cancelled Band Neutrophils % Cancelled Lymphocytes % (Manual) Cancelled Prolymphocyte % Cancelled Reactive Lymphs % (Man) Cancelled Monocytes % (Manual) Cancelled Eosinophils % (Manual) Cancelled Basophils % (Manual) Cancelled Metamyelocytes % (Man) Cancelled Myelocytes % (Man) Cancelled Promyelocytes % (Man) Cancelled Blast Cells % (Manual) Cancelled Plasma Cell % (Manual) Cancelled Other Cells % Cancelled Nucleated RBC % Cancelled Neutrophils # (Manual) Cancelled Band Neutrophils # Cancelled Total Absolute Neuts Cancelled Lymphocytes # (Manual) Cancelled Prolymphocyte # Cancelled Reactive Lymphs # Cancelled Total Abs Lymphocytes Cancelled Monocytes # (Manual) Cancelled Eosinophils # (Manual) Cancelled Basophils # (Manual) Cancelled Metamyelocytes # (Man) Cancelled Myelocytes # (Manual) Cancelled Promyelocytes # (Man) Cancelled Blast Cells # (Man) Cancelled Plasma Cell # (Manual) Cancelled Other Cells # Cancelled Nucleated RBCs # (Man) Cancelled Hypersegmented Neuts Cancelled Hyposegmented Neuts Cancelled Hypogranular Neuts Cancelled Large Granular Lymphs Cancelled # Lrg Granular Lymphs Cancelled Hairy Cells Cancelled Smudge Cells Cancelled Toxic Granulation Cancelled Toxic Vacuolation Cancelled Dohle Bodies Cancelled Maya Rods Cancelled Platelet Estimate Cancelled Hypogranular Platelets Cancelled Giant Platelets Cancelled Platelet Satelliting Cancelled RBC Morphology Cancelled Polychromasia Cancelled Hypochromasia Cancelled Poikilocytosis Cancelled Basophilic Stippling Cancelled Anisocytosis Cancelled Microcytosis Cancelled Macrocytosis Cancelled Spherocytes Cancelled Pappenheimer Bodies Cancelled Sickle Cells Cancelled Target Cells Cancelled Tear Drop Cells Cancelled Ovalocytes Cancelled Stomatocytes Cancelled [place] Bodies Cancelled Echinocytes Cancelled Acanthocytes (Spur) Cancelled Rouleaux Cancelled RBC Agglutinates Cancelled Schistocytes Cancelled Sezary Cell Cancelled PT Cancelled INR Cancelled APTT Cancelled PTT Ratio Cancelled Sodium 135 L (136-145) mmol/L Potassium 3.4 L (3.5-5.1) mmol/L Chloride 103 (98-107) mmol/L Carbon Dioxide 20 L (21-32) mmol/L Anion Gap 12 H (3-11) BUN 17 (6-23) mg/dl Creatinine 0.78 (0.6-1.2) mg/dl Est Cr Clr Drug Dosing Not Reportable eGFR 93.63 BUN/Creatinine Ratio 21.8 H (10-20) Glucose 90 (70-99(Fasting)) mg/dl Calcium 9.9 (8.6-10.3) mg/dl Troponin I High Sens 2.4 (0-14) pg/ml Lipase 30 (11-82) U/L Blood Parasites ID Cancelled Imaging Data Chest x-ray: Attestation: I personally reviewed and interpreted this imaging study as follows: My impression: Chest x-ray negative. Airway clear. No pneumothorax. No consolidation. No cardiomegaly or cephalization.. No free air under the diaphragm. No fractures of the skeletal structures. ECG Data Attestation: I personally reviewed and interpreted this ECG as follows: Additional Comments: EKG #1 at 2002: Sinus rhythm with a rate of 77. NE QRS and QTc intervals are within normal limits. No ST elevation or ST depression. EKG #[id number]: Sinus rhythm with a rate of 65. NE QRS and QTc intervals within normal limits. No ST elevation or ST depression. [facility] Narrative 2006: The patient was evaluated in room C4. A complete history and physical exam was performed Cardiac monitoring: An order was placed for continuous cardiac monitoring. The monitor shows a rate of 80 with sinus rhythm interpreted by me 2026: Patient reports her chest pain is improved 4 of 10 status post 1 sublingual nitroglycerin. 2038: Vital signs stable. Patient reports her chest pain has resolved status post second sublingual nitroglycerin. 2099: Vital signs stable. Patient reporting no chest pain or difficulty breathing at this time. Labs and imaging are unremarkable. [facility] Impression & Plan Chest pain Discharge Plan Visit Data Chief Complaint: Chest Pain Stated Complaint: CHEST PAIN ED Provider: Camacoh Infante Discharge Problem: Chest pain Patient Disposition: Admitted As Inpatient Condition: Fair Forms Stand Alone Forms: [facility] Prescriptions Prescriptions: No Action lorazepam 1 mg tablet 1 mg PO HS PRN (Reason: Sleep) ropinirole 2 mg tablet 2 mg PO HS Rx Instructions: 1 hour before bed with food gabapentin 300 mg capsule 300 mg PO HS Rx Instructions: 1 hour before bed topiramate 25 mg tablet 25 mg PO DAILY Rx Instructions: TAKE FOR 1 WEEK, THEN INCREASE BY 1 TAB WEEKLY TO A MAX OF 4 TABS DAILY. omeprazole 40 mg capsule,delayed release(DR/EC) 40 mg PO DAILYBB ipratropium bromide 42 mcg (0.06 %) spray,non-aerosol 1 spray INTRANASAL BID PRN (Reason: Nasal Congestion) loratadine [Claritin] 10 mg Tablet 10 mg PO DAILY cholecalciferol (vitamin D3) [Vitamin D3] 125 mcg (5,000 unit) Tablet 125 mcg PO DAILY Referrals Referrals: Luigi Mtz MD [Primary Care Provider] - Discharge Problem: Chest pain Qualifiers: Chest pain type: unspecified Qualified Code(s): R07.9 - Chest pain, unspecified
[2025-06-05 20:45] LABS: Anion Gap 12 (3-11); Blood Urea Nitrogen 17 mg/dl (6-23); Calcium 9.9 mg/dl (8.6-10.3); Carbon Dioxide 20 mmol/L (21-32); Chloride 103 mmol/L (98-107); Glucose 90 mg/dl (70-99(Fasting)); Lipase 30 U/L (11-82); Potassium 3.4 mmol/L (3.5-5.1); Sodium 135 mmol/L (136-145)
[2025-06-05 20:55] LABS: Hematocrit (blood only) 39.5 % (37.0-47.0); Hemoglobin 13.2 g/dl (12.0-16.0); Immature Granulocytes # (auto) 0.02 K/uL (0.01-0.20); Immature Granulocytes % (auto) 0.2 %; Mean Corpuscular Hemoglobin 29.9 pg (25.0-34.0); Mean Corpuscular Volume 89.6 fL (80.0-100.0); Platelet Count 339 K/uL (130-400); RDW Standard Deviation 40.7 fL (36.4-46.3); Red Blood Count 4.41 M/uL (4.20-5.40); White Blood Count 8.84 K/ul (4.8-10.8)
--- NOTE | 2025-06-05 21:43 | XRay Report ---
Exam(s): XR CXR 1 VIEW EXAM: XR Chest, 1 View CLINICAL HISTORY: Reason for exam: Chest pain, nonspecific. TECHNIQUE: Frontal view of the chest. COMPARISON: Chest radiograph on 12/09/2022 FINDINGS: Hardware: None. Lungs/pleura: Normal. No focal consolidation. No pleural effusion or pneumothorax. Heart/mediastinum: Normal. No cardiomegaly. Soft tissues: Unremarkable. Bones: No acute fracture. Upper abdomen: Normal. IMPRESSION: No acute disease identified. Electronically signed by: Tato Hughes M.D. 06/05/25 21:42 PM
[2025-06-05] MEDS ORDERED: IPRATROPIUM BROMIDE NASAL SPRAY 0.06% 15ML PRN (22:50)
[2025-06-05] MEDS ORDERED: POLYETHYLENE (MIRALAX) 17 GM PACK PO PRN (22:50)
[2025-06-05] MEDS ORDERED: NITROGLYCERIN SL 0.4 MG/TAB TAB SL PRN (22:50)
--- NOTE | 2025-06-05 23:02 | History & Physical Report ---
Date of Service June 05, 2025 Assessment & Plan (1) Chest pain: Plan: 50-year-old female with past medical history significant for mild intermittent asthma, hypertension, GERD, restless leg syndrome, lumbar degenerative disc disease, pseudotumor cerebri, persistent insomnia, depression with anxiety, family history of hemochromatosis comes because of chest pain. Around 7:30 PM when she was watching TV she noticed severe sharp and pressure-like feeling in the center of the chest radiating to the back and to the neck. Pain was associated with shortness of breath, dizziness, sweating and nausea. In the ER second nitro resolved her pain. Currently resting comfortably. Denies any headache. No runny nose or sore throat. She has chronic cough. No fevers. Currently no abdominal pain. Normal bowel and bladder movements. Hemodynamics are okay. Chest pain Resolved with nitro Initial EKG and two troponin unremarkable family history of Pe.d dimer negative. Lower extremity doppler negative. Will follow repeat troponin Monitor on telemetry Serial cardiac enzymes and echo Consult cardiology in a.m. for further recommendations History of mild persistent asthma Currently stable History of restless leg syndrome On ropinirole and gabapentin GERD On omeprazole DVT prophylaxis SCDs for now Disposition Observation med/telemetry Full code. History of Present Illness Chief Complaint: Chest pain Primary Care Provider: Luigi Mtz MD 50-year-old female with past medical history significant for mild intermittent asthma, hypertension, GERD, restless leg syndrome, lumbar degenerative disc disease, pseudotumor cerebri, persistent insomnia, depression with anxiety, family history of hemochromatosis comes because of chest pain. Around 7:30 PM when she was watching TV she noticed severe sharp and pressure-like feeling in the center of the chest radiating to the back and to the neck. Pain was associated with shortness of breath, dizziness, sweating and nausea. In the ER second nitro resolved her pain. Currently resting comfortably. Denies any headache. No runny nose or sore throat. She has chronic cough. No fevers. Currently no abdominal pain. Normal bowel and bladder movements. Hemodynamics are okay. Past medical history. As mentioned above Past surgical history. Colonoscopy. Cystoscopy. Dental surgery. EGD. Injection lumbosacral spine. Laparoscopic total hysterectomy with removal of tubes and ovaries. Lumbar hemilaminectomy. Reconstruction of cleft palate. Social history. . No smoking. Alcohol rarely. No drug use. Family history. Mother had anxiety. Hypertension. Pulmonary embolism. Father had hyperlipidemia. Hypertension. Allergies Allergy/AdvReac Type Severity Reaction Status Date / Time lisinopril Allergy Severe angioedema Verified 06/05/25 21:05 amoxicillin Allergy Intermediate Rash Verified 06/05/25 21:05 acetazolamide AdvReac Severe Reaction: Verified 06/05/25 21:05 Numb through whole body prochlorperazine AdvReac Severe PANIC Verified 06/05/25 21:05 ATTACK benzonatate AdvReac Intermediate NAUSEA/VOMI Verified 06/05/25 21:05 TING Home Medications Medication Instructions Recorded Confirmed Type lorazepam 1 mg tablet 1 mg PO HS PRN Sleep 11/20/20 06/05/25 History gabapentin 300 mg capsule 300 mg PO HS 09/16/23 06/05/25 History ropinirole 2 mg tablet 2 mg PO HS 09/16/23 06/05/25 History cholecalciferol (vitamin D3) 125 125 mcg PO DAILY 06/05/25 06/05/25 History mcg (5,000 unit) tablet (Vitamin D3) ipratropium bromide 42 mcg (0.06 1 spray intranasal BID PRN Nasal 06/05/25 06/05/25 History %) nasal spray Congestion loratadine 10 mg tablet (Claritin) 10 mg PO DAILY 06/05/25 06/05/25 History omeprazole 40 mg capsule,delayed 40 mg PO DAILYBB 06/05/25 06/05/25 History release topiramate 25 mg tablet 25 mg PO DAILY 06/05/25 06/05/25 History Past Med/Surg History Problem List (Updated 06/05/25 @ 21:41 by Camacho Infante MD) Chest pain (Acute) Restless leg syndrome Hypertension (Chronic) GERD (gastroesophageal reflux disease) (Chronic) Splenic hemorrhage (Acute) Medical History DJD (degenerative joint disease) Ovarian cyst Surgical History History of hysterectomy H/O wisdom tooth extraction History of facial surgery History of lumbar discectomy History of colonoscopy History of esophagogastroduodenoscopy (EGD) Social History Smoking Status: Never smoker Second Hand Exposure: No; Do You Dip or Chew Tobacco: No; Hx Alcohol Use: No Hx Substance Use: No Preferred Language: Serbian Communication Ability: Effective Classification Control Clerk Required: No Beliefs That Will Affect Care: None Current Living Situation: Spouse Feels Safe at Home: Yes Safety Concerns: Feels Safe At This Time Assistive Devices: None Review of Systems Review of Systems: All systems reviewed & are unremarkable except as noted in HPI & below Physical Exam Physical Exam: General- Not in distress Head- atraumatic Eyes- PERRL. ENT- oropharynx clear Neck- supple, no JVD. Lungs- clear to auscultation no wheezing or crackles Heart- regular rhythm; no murmur, no gallop. Abdomen- normal bowel sounds, soft, nontender, no distension Extremities- no pretibial edema, no erythema seen Neuro- alert, oriented PERRL, no facial palsy; no dysarthria; moves extremities Results & Data Results & Data Vital Signs (Past 12 Hours) Vital Signs Temp Pulse Pulse Resp BP BP Pulse Ox 06/05/25 21:25 69 19 170/102 H 96 06/05/25 20:56 99 06/05/25 20:30 86 19 146/96 H 99 06/05/25 20:20 76 06/05/25 20:05 74 06/05/25 19:58 36.7 C 92 H 20 197/111 H 100 O2 Del Method 06/05/25 21:25 Room Air 06/05/25 20:56 Room Air 06/05/25 20:30 Room Air 06/05/25 20:20 06/05/25 20:05 06/05/25 19:58 Room Air Diagnostic Findings Laboratory Results WBC 8.84 K/ul (4.8-10.8) 06/05/25 20:45 RBC 4.41 M/uL (4.20-5.40) 06/05/25 20:45 Hgb 13.2 g/dl (12.0-16.0) 06/05/25 20:45 Hct 39.5 % (37.0-47.0) 06/05/25 20:45 MCV 89.6 fL (80.0-100.0) 06/05/25 20:45 MCH 29.9 pg (25.0-34.0) 06/05/25 20:45 MCHC 33.4 g/dL (32.0-36.0) 06/05/25 20:45 RDW Std Deviation 40.7 fL (36.4-46.3) 06/05/25 20:45 RDW Coeff of Angela 12.3 % (11.5-14.5) 06/05/25 20:45 Plt Count 339 K/uL (130-400) 06/05/25 20:45 MPV 9.6 fL (9.4-12.4) 06/05/25 20:45 Immature Gran % (Auto) 0.2 % 06/05/25 20:45 Neut % (Auto) 58.5 % 06/05/25 20:45 Lymph % (Auto) 30.2 % 06/05/25 20:45 Cooper % (Auto) 7.2 % 06/05/25 20:45 Eos % (Auto) 3.6 % 06/05/25 20:45 Baso % (Auto) 0.3 % 06/05/25 20:45 Neut # (Auto) 5.16 K/uL (1.40-6.50) 06/05/25 20:45 Lymph # (Auto) 2.67 K/uL (1.20-3.40) 06/05/25 20:45 Cooper # (Auto) 0.64 K/uL (0.11-0.59) H 06/05/25 20:45 Eos # (Auto) 0.32 K/uL (0.00-0.50) 06/05/25 20:45 Baso # (Auto) 0.03 K/uL (0.00-0.20) 06/05/25 20:45 Immature Gran # (Auto) 0.02 K/uL (0.01-0.20) 06/05/25 20:45 Absolute Nucleated RBC Cancelled 06/05/25 20:14 Nucleated RBC % (auto) Cancelled 06/05/25 20:14 Neutrophils % (Manual) Cancelled 06/05/25 20:14 Band Neutrophils % Cancelled 06/05/25 20:14 Lymphocytes % (Manual) Cancelled 06/05/25 20:14 Prolymphocyte % Cancelled 06/05/25 20:14 Reactive Lymphs % (Man) Cancelled 06/05/25 20:14 Monocytes % (Manual) Cancelled 06/05/25 20:14 Eosinophils % (Manual) Cancelled 06/05/25 20:14 Basophils % (Manual) Cancelled 06/05/25 20:14 Metamyelocytes % (Man) Cancelled 06/05/25 20:14 Myelocytes % (Man) Cancelled 06/05/25 20:14 Promyelocytes % (Man) Cancelled 06/05/25 20:14 Blast Cells % (Manual) Cancelled 06/05/25 20:14 Plasma Cell % (Manual) Cancelled 06/05/25 20:14 Other Cells % Cancelled 06/05/25 20:14 Nucleated RBC % Cancelled 06/05/25 20:14 Neutrophils # (Manual) Cancelled 06/05/25 20:14 Band Neutrophils # Cancelled 06/05/25 20:14 Total Absolute Neuts Cancelled 06/05/25 20:14 Lymphocytes # (Manual) Cancelled 06/05/25 20:14 Prolymphocyte # Cancelled 06/05/25 20:14 Reactive Lymphs # Cancelled 06/05/25 20:14 Total Abs Lymphocytes Cancelled 06/05/25 20:14 Monocytes # (Manual) Cancelled 06/05/25 20:14 Eosinophils # (Manual) Cancelled 06/05/25 20:14 Basophils # (Manual) Cancelled 06/05/25 20:14 Metamyelocytes # (Man) Cancelled 06/05/25 20:14 Myelocytes # (Manual) Cancelled 06/05/25 20:14 Promyelocytes # (Man) Cancelled 06/05/25 20:14 Blast Cells # (Man) Cancelled 06/05/25 20:14 Plasma Cell # (Manual) Cancelled 06/05/25 20:14 Other Cells # Cancelled 06/05/25 20:14 Nucleated RBCs # (Man) Cancelled 06/05/25 20:14 Hypersegmented Neuts Cancelled 06/05/25 20:14 Hyposegmented Neuts Cancelled 06/05/25 20:14 Hypogranular Neuts Cancelled 06/05/25 20:14 Large Granular Lymphs Cancelled 06/05/25 20:14 # Lrg Granular Lymphs Cancelled 06/05/25 20:14 Hairy Cells Cancelled 06/05/25 20:14 Smudge Cells Cancelled 06/05/25 20:14 Toxic Granulation Cancelled 06/05/25 20:14 Toxic Vacuolation Cancelled 06/05/25 20:14 Dohle Bodies Cancelled 06/05/25 20:14 Maya Rods Cancelled 06/05/25 20:14 Platelet Estimate Cancelled 06/05/25 20:14 Hypogranular Platelets Cancelled 06/05/25 20:14 Giant Platelets Cancelled 06/05/25 20:14 Platelet Satelliting Cancelled 06/05/25 20:14 RBC Morphology Cancelled 06/05/25 20:14 Polychromasia Cancelled 06/05/25 20:14 Hypochromasia Cancelled 06/05/25 20:14 Poikilocytosis Cancelled 06/05/25 20:14 Basophilic Stippling Cancelled 06/05/25 20:14 Anisocytosis Cancelled 06/05/25 20:14 Microcytosis Cancelled 06/05/25 20:14 Macrocytosis Cancelled 06/05/25 20:14 Spherocytes Cancelled 06/05/25 20:14 Pappenheimer Bodies Cancelled 06/05/25 20:14 Sickle Cells Cancelled 06/05/25 20:14 Target Cells Cancelled 06/05/25 20:14 Tear Drop Cells Cancelled 06/05/25 20:14 Ovalocytes Cancelled 06/05/25 20:14 Stomatocytes Cancelled 06/05/25 20:14 Pichardo-[place] Bodies Cancelled 06/05/25 20:14 Echinocytes Cancelled 06/05/25 20:14 Acanthocytes (Spur) Cancelled 06/05/25 20:14 Rouleaux Cancelled 06/05/25 20:14 RBC Agglutinates Cancelled 06/05/25 20:14 Schistocytes Cancelled 06/05/25 20:14 Sezary Cell Cancelled 06/05/25 20:14 PT Cancelled 06/05/25 20:14 INR Cancelled 06/05/25 20:14 APTT Cancelled 06/05/25 20:14 PTT Ratio Cancelled 06/05/25 20:14 Sodium 135 mmol/L (136-145) L 06/05/25 20:14 Potassium 3.4 mmol/L (3.5-5.1) L 06/05/25 20:14 Chloride 103 mmol/L (98-107) 06/05/25 20:14 Carbon Dioxide 20 mmol/L (21-32) L 06/05/25 20:14 Anion Gap 12 (3-11) H 06/05/25 20:14 BUN 17 mg/dl (6-23) 06/05/25 20:14 Creatinine 0.78 mg/dl (0.6-1.2) 06/05/25 20:14 Est Cr Clr Drug Dosing Not Reportable 06/05/25 20:14 eGFR 93.63 06/05/25 20:14 BUN/Creatinine Ratio 21.8 (10-20) H 06/05/25 20:14 Glucose 90 mg/dl (70-99(Fasting)) 06/05/25 20:14 Calcium 9.9 mg/dl (8.6-10.3) 06/05/25 20:14 Troponin I High Sens 2.4 pg/ml (0-14) 06/05/25 20:14 Lipase 30 U/L (11-82) 06/05/25 20:14 Blood Parasites ID Cancelled 06/05/25 20:14 Impressions Chest X-Ray 06/05/25 20:13 Exam(s): XR CXR 1 VIEW EXAM: XR Chest, 1 View CLINICAL HISTORY: Reason for exam: Chest pain, nonspecific. TECHNIQUE: Frontal view of the chest. COMPARISON: Chest radiograph on 12/09/2022 FINDINGS: Hardware: None. Lungs/pleura: Normal. No focal consolidation. No pleural effusion or pneumothorax. Heart/mediastinum: Normal. No cardiomegaly. Soft tissues: Unremarkable. Bones: No acute fracture. Upper abdomen: Normal. IMPRESSION: No acute disease identified. Electronically signed by: Tato Hughes M.D. 06/05/25 21:42 PM ECG Additional Comments: ECG. Normal sinus rhythm with sinus arrhythmia rate of 65. No significant changes found. Code Status & VTE Plan VTE Prophylaxis Plan VTE Prophylaxis will be ordered: Yes (1) Chest pain Chest pain type: unspecified Qualified Code(s): R07.9 - Chest pain, unspecified
[2025-06-06 00:10] LABS: INR 0.9 (0.9-1.1); Partial Thromboplastin Time 26 Seconds (21-31); Prothrombin Time 10.3 Seconds (9.0-12.0)
[2025-06-06] MEDS: POTASSIUM CHLORIDE CRTAB 20 MEQ TABCR PO STA (00:13)
[2025-06-06] MEDS: LORazepam 1 MG TAB PO PRN (00:13)
--- NOTE | 2025-06-06 00:22 | Ultrasound Report ---
Exam(s): US VENOUS BILATERAL LOWER EXTREMITIES EXAM: US Duplex Bilateral Lower Extremities Veins CLINICAL HISTORY: Reason for exam: ro dvt. TECHNIQUE: Real-time duplex ultrasound scan of the bilateral lower extremity veins integrating B-mode two-dimensional vascular structure, Doppler spectral analysis, color flow Doppler imaging and compression. COMPARISON: No relevant prior studies available. FINDINGS: Right deep veins: No DVT in the right common femoral, femoral, proximal deep femoral or popliteal veins. The veins demonstrate normal color flow, are normally compressible, with normal phasic flow and/or augmentation response. Right superficial veins: No thrombus in the visualized right great saphenous vein. Left deep veins: No DVT in the left common femoral, femoral, proximal deep femoral or popliteal veins. The veins demonstrate normal color flow, are normally compressible, with normal phasic flow and/or augmentation response. Left superficial veins: No thrombus in the visualized left great saphenous vein. Soft tissues: No acute findings. IMPRESSION: No evidence of acute DVT. Electronically signed by: Heide Brennan M.D. 06/06/25 00:22 AM
[2025-06-06 06:38] LABS: Hematocrit (blood only) 36.7 % (37.0-47.0); Hemoglobin 12.2 g/dl (12.0-16.0); Immature Granulocytes # (auto) 0.02 K/uL (0.01-0.20); Immature Granulocytes % (auto) 0.3 %; Mean Corpuscular Hemoglobin 29.6 pg (25.0-34.0); Mean Corpuscular Volume 89.1 fL (80.0-100.0); Platelet Count 309 K/uL (130-400); RDW Standard Deviation 40.8 fL (36.4-46.3); Red Blood Count 4.12 M/uL (4.20-5.40); White Blood Count 7.64 K/ul (4.8-10.8)
[2025-06-06 07:18] LABS: Anion Gap 6 (3-11); Calcium 8.5 mg/dl (8.6-10.3); Carbon Dioxide 21 mmol/L (21-32); Chloride 112 mmol/L (98-107); Magnesium 2.0 mg/dl (1.7-2.4); Potassium 3.9 mmol/L (3.5-5.1); Sodium 139 mmol/L (136-145)
[2025-06-06 07:24] LABS: Blood Urea Nitrogen 15 mg/dl (6-23); Cholesterol 182 mg/dl (0-200); Creatinine Clr Calc Pharmacy 115.9 ml/min; Glucose 86 mg/dl (70-99(Fasting)); HDL Cholesterol 59 mg/dl; Triglycerides 109 mg/dl (0-150)
--- NOTE | 2025-06-06 08:13 | Hospitalist Progress Note ---
Date of Service June 06, 2025 Assessment & Plan (1) Chest pain: Plan: 50-year-old female with past medical history significant for mild intermittent asthma, hypertension, GERD, restless leg syndrome, lumbar degenerative disc disease, pseudotumor cerebri, persistent insomnia, depression with anxiety, family history of hemochromatosis comes because of chest pain. Around 7:30 PM when she was watching TV she noticed severe sharp and pressure-like feeling in the center of the chest radiating to the back and to the neck. Pain was associated with shortness of breath, dizziness, sweating and nausea. In the ER second nitro resolved her pain. Currently resting comfortably. Denies any headache. No runny nose or sore throat. She has chronic cough. No fevers. Currently no abdominal pain. Normal bowel and bladder movements. Hemodynamics are okay. Chest pain, Hypertensive urgency Resolved with nitro Initial EKG and two troponin unremarkable family history of Pe.d dimer negative. Lower extremity doppler negative. Monitor on telemetry Serial cardiac enzymes and echo Cardiology consulted - started pt on amlodipine 5 mg daily, plan for stress test Discussed with the pt her hypertension - pt says she tries to eat healthy, does not add extra salt, does not smoke, or drink alcohol, goes to the gym 5/week before work. Her BMI is 31 - pt says she lost 70 lbs on ozempic in the past. Then gained 30 lbs back after having hysterectomy. recommend weight management, consider resuming pt on ozempic again or ozempic-like drugs as outpt History of mild persistent asthma Currently stable History of restless leg syndrome On ropinirole and gabapentin GERD On omeprazole DVT prophylaxis SCDs for now Disposition med/telemetry Full code. Admission and Anticipated Discharge Date Admission Date: June 05, 2025 Subjective Pt seen in follow up of chest pain Currently lying in bed in NAD Says when she came to the hospital she was scared and felt like she was going to Currently without chest pain Reports having chronic cough. Tries to eat healthy, does not smoke, or drink alcohol, goes to the gym 5/week before going to work. Her BMI is 31. Says she was on ozempic in the past and lost 70 lbs and felt very well. Then , after hysterectomy gained 30 lbs back. Discussed weight management and possibly restarting pt on ozempic again. Review of Systems Review of Systems: All systems reviewed & are unremarkable except as noted in Subjective Physical Exam Physical Exam: General- WD/WN F in NAD Head- atraumatic Eyes- PERRL. Neck- supple Lungs- clear to auscultation no wheezing or crackles Heart- regular rhythm; no murmur Abdomen- normal bowel sounds, soft, nontender, no distension Extremities- no pretibial edema, no erythema seen Neuro- alert, oriented PERRL, no facial palsy; no dysarthria; moves extremities Results & Data Results & Data Vital Signs (Past 12 Hours) Vital Signs Temp Pulse Pulse Pulse Resp BP BP 06/06/25 07:20 81 06/06/25 04:15 36.6 C 68 18 151/88 H 06/05/25 23:53 58 L 06/05/25 22:59 36.4 C L 56 L 16 169/90 H 06/05/25 21:30 68 14 156/87 H 06/05/25 21:25 69 19 06/05/25 20:56 06/05/25 20:30 86 19 146/96 H 06/05/25 20:20 76 BP Pulse Ox O2 Del Method 06/06/25 07:20 06/06/25 04:15 98 Room Air 06/05/25 23:53 06/05/25 22:59 100 Room Air 06/05/25 21:30 99 Room Air 06/05/25 21:25 170/102 H 96 Room Air 06/05/25 20:56 99 Room Air 06/05/25 20:30 99 Room Air 06/05/25 20:20 Laboratory Results 06/06/25 06/05/25 06/05/25 Range/Units 05:44 23:02 20:45 WBC 7.64 8.84 RBC 4.12 L 4.41 Hgb 12.2 13.2 Hct 36.7 L 39.5 MCV 89.1 89.6 MCH 29.6 29.9 MCHC 33.2 33.4 RDW Std Deviation 40.8 40.7 RDW Coeff of Angela 12.6 12.3 Plt Count 309 339 MPV 9.8 9.6 Immature Gran % (Auto) 0.3 0.2 Neut % (Auto) 58.7 58.5 Lymph % (Auto) 29.1 30.2 Real % (Auto) 8.0 7.2 Eos % (Auto) 3.5 3.6 Baso % (Auto) 0.4 0.3 Neut # (Auto) 4.49 5.16 Lymph # (Auto) 2.22 2.67 Real # (Auto) 0.61 H 0.64 H Eos # (Auto) 0.27 0.32 Baso # (Auto) 0.03 0.03 Immature Gran # (Auto) 0.02 0.02 Absolute Nucleated RBC Nucleated RBC % (auto) Neutrophils % (Manual) Band Neutrophils % Lymphocytes % (Manual) Prolymphocyte % Reactive Lymphs % (Man) Monocytes % (Manual) Eosinophils % (Manual) Basophils % (Manual) Metamyelocytes % (Man) Myelocytes % (Man) Promyelocytes % (Man) Blast Cells % (Manual) Plasma Cell % (Manual) Other Cells % Nucleated RBC % Neutrophils # (Manual) Band Neutrophils # Total Absolute Neuts Lymphocytes # (Manual) Prolymphocyte # Reactive Lymphs # Total Abs Lymphocytes Monocytes # (Manual) Eosinophils # (Manual) Basophils # (Manual) Metamyelocytes # (Man) Myelocytes # (Manual) Promyelocytes # (Man) Blast Cells # (Man) Plasma Cell # (Manual) Other Cells # Nucleated RBCs # (Man) Hypersegmented Neuts Hyposegmented Neuts Hypogranular Neuts Large Granular Lymphs # Lrg Granular Lymphs Hairy Cells Smudge Cells Toxic Granulation Toxic Vacuolation Dohle Bodies Maya Rods Platelet Estimate Hypogranular Platelets Giant Platelets Platelet Satelliting RBC Morphology Polychromasia Hypochromasia Poikilocytosis Basophilic Stippling Anisocytosis Microcytosis Macrocytosis Spherocytes Pappenheimer Bodies Sickle Cells Target Cells Tear Drop Cells Ovalocytes Stomatocytes Pichardo-[place] Bodies Echinocytes Acanthocytes (Spur) Rouleaux RBC Agglutinates Schistocytes Sezary Cell PT 10.3 INR 0.9 APTT 26 PTT Ratio 1.0 D-Dimer 340 (0-500) ug/L FEU Sodium 139 (136-145) mmol/L Potassium 3.9 (3.5-5.1) mmol/L Chloride 112 H (98-107) mmol/L Carbon Dioxide 21 (21-32) mmol/L Anion Gap 6 (3-11) BUN 15 (6-23) mg/dl Creatinine 0.73 (0.6-1.2) mg/dl Est Cr Clr Drug Dosing 115.9 eGFR 101.38 BUN/Creatinine Ratio 20.5 H (10-20) Glucose 86 (70-99(Fasting)) mg/dl Calcium 8.5 L (8.6-10.3) mg/dl Magnesium 2.0 (1.7-2.4) mg/dl Troponin I High Sens < 2.3 < 2.3 (0-14) pg/ml Triglycerides 109 (0-150) mg/dl Cholesterol 182 (0-200) mg/dl LDL Cholesterol, Calc 101 mg/dl VLDL Cholesterol, Calc 22 (0-30) mg/dl HDL Cholesterol 59 mg/dl Cholesterol/HDL Ratio 3.1 (0-5) Lipase (11-82) U/L Blood Parasites ID 06/05/25 Range/Units 20:14 WBC Cancelled RBC Cancelled Hgb Cancelled Hct Cancelled MCV Cancelled MCH Cancelled MCHC Cancelled RDW Std Deviation Cancelled RDW Coeff of Angela Cancelled Plt Count Cancelled MPV Cancelled Immature Gran % (Auto) Cancelled Neut % (Auto) Cancelled Lymph % (Auto) Cancelled Real % (Auto) Cancelled Eos % (Auto) Cancelled Baso % (Auto) Cancelled Neut # (Auto) Cancelled Lymph # (Auto) Cancelled Real # (Auto) Cancelled Eos # (Auto) Cancelled Baso # (Auto) Cancelled Immature Gran # (Auto) Cancelled Absolute Nucleated RBC Cancelled Nucleated RBC % (auto) Cancelled Neutrophils % (Manual) Cancelled Band Neutrophils % Cancelled Lymphocytes % (Manual) Cancelled Prolymphocyte % Cancelled Reactive Lymphs % (Man) Cancelled Monocytes % (Manual) Cancelled Eosinophils % (Manual) Cancelled Basophils % (Manual) Cancelled Metamyelocytes % (Man) Cancelled Myelocytes % (Man) Cancelled Promyelocytes % (Man) Cancelled Blast Cells % (Manual) Cancelled Plasma Cell % (Manual) Cancelled Other Cells % Cancelled Nucleated RBC % Cancelled Neutrophils # (Manual) Cancelled Band Neutrophils # Cancelled Total Absolute Neuts Cancelled Lymphocytes # (Manual) Cancelled Prolymphocyte # Cancelled Reactive Lymphs # Cancelled Total Abs Lymphocytes Cancelled Monocytes # (Manual) Cancelled Eosinophils # (Manual) Cancelled Basophils # (Manual) Cancelled Metamyelocytes # (Man) Cancelled Myelocytes # (Manual) Cancelled Promyelocytes # (Man) Cancelled Blast Cells # (Man) Cancelled Plasma Cell # (Manual) Cancelled Other Cells # Cancelled Nucleated RBCs # (Man) Cancelled Hypersegmented Neuts Cancelled Hyposegmented Neuts Cancelled Hypogranular Neuts Cancelled Large Granular Lymphs Cancelled # Lrg Granular Lymphs Cancelled Hairy Cells Cancelled Smudge Cells Cancelled Toxic Granulation Cancelled Toxic Vacuolation Cancelled Dohle Bodies Cancelled Maya Rods Cancelled Platelet Estimate Cancelled Hypogranular Platelets Cancelled Giant Platelets Cancelled Platelet Satelliting Cancelled RBC Morphology Cancelled Polychromasia Cancelled Hypochromasia Cancelled Poikilocytosis Cancelled Basophilic Stippling Cancelled Anisocytosis Cancelled Microcytosis Cancelled Macrocytosis Cancelled Spherocytes Cancelled Pappenheimer Bodies Cancelled Sickle Cells Cancelled Target Cells Cancelled Tear Drop Cells Cancelled Ovalocytes Cancelled Stomatocytes Cancelled Pichardo-[place] Bodies Cancelled Echinocytes Cancelled Acanthocytes (Spur) Cancelled Rouleaux Cancelled RBC Agglutinates Cancelled Schistocytes Cancelled Sezary Cell Cancelled PT Cancelled INR Cancelled APTT Cancelled PTT Ratio Cancelled D-Dimer (0-500) ug/L FEU Sodium 135 L (136-145) mmol/L Potassium 3.4 L (3.5-5.1) mmol/L Chloride 103 (98-107) mmol/L Carbon Dioxide 20 L (21-32) mmol/L Anion Gap 12 H (3-11) BUN 17 (6-23) mg/dl Creatinine 0.78 (0.6-1.2) mg/dl Est Cr Clr Drug Dosing Not Reportable eGFR 93.63 BUN/Creatinine Ratio 21.8 H (10-20) Glucose 90 (70-99(Fasting)) mg/dl Calcium 9.9 (8.6-10.3) mg/dl Magnesium (1.7-2.4) mg/dl Troponin I High Sens 2.4 (0-14) pg/ml Triglycerides (0-150) mg/dl Cholesterol (0-200) mg/dl LDL Cholesterol, Calc mg/dl VLDL Cholesterol, Calc (0-30) mg/dl HDL Cholesterol mg/dl Cholesterol/HDL Ratio (0-5) Lipase 30 (11-82) U/L Blood Parasites ID Cancelled Medications Administered Current Inpatient Medications Acetaminophen (Acetaminophen 325 Mg Tab) 650 mg PO Q4H PRN PRN Reason: Pain or Fever Stop: 07/05/25 22:49 Gabapentin (Gabapentin 300 Mg Cap) 300 mg PO HS MARYBEL Stop: 07/06/25 20:59 Ipratropium [place] (Ipratropium [place] Nasal [place] 0.06% 15ml) 1 sprays NA BID PRN PRN Reason: Nasal Congestion Stop: 07/05/25 22:49 Loratadine (Loratadine 10 Mg Tab) 10 mg PO DAILY MARYBEL Stop: 07/06/25 08:59 Lorazepam (Lorazepam 1 Mg Tab) 1 mg PO HS PRN PRN Reason: Sleep Stop: 07/05/25 22:49 Last Admin: 06/06/25 00:13 Dose: 1 mg Nitroglycerin (Nitroglycerin Sl 0.4 Mg/Tab Tab) 0.4 mg SL Q5M PRN PRN Reason: Chest Pain Stop: 07/05/25 22:49 Pantoprazole Sodium (Pantoprazole 40 Mg Tab) 40 mg PO DAILYBB MARYBEL Stop: 07/06/25 06:29 Last Admin: 06/06/25 06:12 Dose: 40 mg Polyethylene Glycol (Polyethylene (Miralax) 17 Gm Pack) 17 gm PO DAILY PRN PRN Reason: Constipation Stop: 07/05/25 22:49 Ropinirole HCl (Ropinirole Hcl 2 Mg Tablet) 2 mg PO HS MARYBEL Stop: 07/06/25 20:59 Topiramate (Topiramate 25 Mg Tab) 25 mg PO DAILY MARYBEL Stop: 07/06/25 08:59 Vitamin D (Cholecalciferol 125 Mcg (5,000 Units) Tab) 125 mcg PO DAILY MARYBEL Stop: 07/06/25 08:59 (1) Chest pain Chest pain type: unspecified Qualified Code(s): R07.9 - Chest pain, unspecified
--- NOTE | 2025-06-06 08:58 | Cardiology Consultation ---
Date of Consultation June 06, 2025 Assessment & Plan (1) Chest pain at rest: (2) Hypertensive urgency: (3) Hypertension: Plan 50-year-old female without prior cardiac history admitted on June 05, 2025 after experiencing atypical resting chest discomfort as detailed below. Blood pressure significantly elevated on presentation at 197/111, improving during hospitalization though remaining uncontrolled. EKGs without acute change. High-sensitivity troponin negative. Resting echocardiography notable for mild concentric LVH, preserved LV systolic function (EF 60 to 65%) without regional wall motion abnormalities. Only trace mitral and tricuspid insufficiency observed. No pericardial effusion noted. Chest x-ray without acute cardiopulmonary findings. D-dimer negative. Lipase negative. Recommendations: * Blood pressure control * Add amlodipine 5 mg/day * ACEI/ARB NOT prescribed secondary to angioedema with past use of lisinopril * Refer for stress echocardiography * * Stress echocardiogram was negative for ischemia at moderate level workload Patient achieved 91% age-predicted maximal heart rate. Study was stopped secondary to hypertensive blood pressure response and achieving greater than 90% age-predicted maximal heart rate. No cardiac symptoms Resting wall motion: Normal. Stress wall motion: Appropriate increase in Left ventricular systolic function and decrease in cavity size. No stress induced segmental wall motion abnormalities. Left ventricular systolic function is normal. Left Ventricular Ejection Fraction = 60-65%. Supervising Physician Co-Signing Physician Notes Patient was seen and personally examined. Full assessment and plan as outlined by advanced provider above. Care and management discussed and personally endorsed 50-year-old female presenting with chest pain nausea and vomiting. No evidence of myocardial injury by EKG or cardiac enzyme. Blood pressure elevated since admission with prior history of hypertension per patient Stress echocardiogram negative for ischemia at 91% age-predicted maximal heart rate. Moderate workload achieved of 7 METS with study discontinued due to hypertensive blood pressure response. Normal resting and stress LV function Recommendations: As above would treat hypertension add amlodipine 5 mg p.o. daily No evidence of myocardial injury or ischemia by testing and stress testing as above History of Present Illness Reason for Consultation: Chest pain Requesting Physician: Josef Hospitalist Service, Eusebio Davis MD Attending Physician: [facility] Hospitalist Service, Eusebio Davis MD History of Present Illness Patient is a 50-year-old female who presented to [facility] via personal vehicle on Thursday, June 05, 2025 for evaluation of chest discomfort. Patient ate dinner around 630 which consisted of leftover walleye and nay hair pasta with a dry rub the day had consumed the night before without difficulty. Around 7 PM the patient experienced nausea and vomiting x 1. 15 minutes later, while watching television, the patient began to have chest discomfort which she describes as a heavy burning horrible intense pain that wrapped around to her mid back on the right. This was associated with some nausea, sweating, feeling shaky, dizzy. She has never experienced anything like this in the past. Pressing on the chest with her hands seemed to help the discomfort some. Blood pressure on presentation to the ER was notably 197/111. EKG without acute change. High-sensitivity troponin negative (2.4 then < 2.3 then <2.3). Chest x-ray without acute cardiopulmonary findings. D-dimer normal at 340 ug/L. Lipase normal. LDL cholesterol 101 mg/deciliter. In the ER patient received aspirin, experiencing improvement in discomfort following administration of sublingual nitroglycerin. Patient has been chest pain-free since admission. Blood pressures have improved though remain elevated. Patient notes being active, going to the gym 5 days/week including 30 minutes on the treadmill and 30 to 45 minutes of weight training. No chest discomfort or shortness of breath with activity. No recent change in exercise tolerance or overall functional status. No unilateral complaints to suggest TIA/CVA. No syncope. No recent illnesses or injury. Past Medical and Surgical History Hypertension Pseudotumor cerebri Restless leg syndrome GERD Multiple gastric polyps Iron deficiency anemia Asthma Insomnia, utilizing as needed lorazepam Cleft palate with cleft lip status post reconstruction Depression with anxiety Uterine fibroid Total abdominal hysterectomy Lumbar hemilaminectomy Lumbar spine injection Family History: Mother with a PE at 68, alive at 72. Father committed suicide. One half sister who is 12 years younger, without cardiac issues. Paternal grandmother with hemochromatosis. Aunt with rheumatoid arthritis Social History: Never smoker. Social alcohol use only. No illegal/illicit drug use. 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 . 1 son and 1 daughter. Allergies Allergy/AdvReac Type Severity Reaction Status Date / Time lisinopril Allergy Severe angioedema Verified 06/05/25 21:05 amoxicillin Allergy Intermediate Rash Verified 06/05/25 21:05 acetazolamide AdvReac Severe Reaction: Verified 06/05/25 21:05 Numb through whole body prochlorperazine AdvReac Severe PANIC Verified 06/05/25 21:05 ATTACK benzonatate AdvReac Intermediate NAUSEA/VOMI Verified 06/05/25 21:05 TING Home Medications Medication Instructions Recorded Confirmed Type lorazepam 1 mg tablet 1 mg PO HS PRN Sleep 11/20/20 06/05/25 History gabapentin 300 mg capsule 300 mg PO HS 09/16/23 06/05/25 History ropinirole 2 mg tablet 2 mg PO HS 09/16/23 06/05/25 History cholecalciferol (vitamin D3) 125 125 mcg PO DAILY 06/05/25 06/05/25 History mcg (5,000 unit) tablet (Vitamin D3) ipratropium bromide 42 mcg (0.06 1 spray intranasal BID PRN Nasal 06/05/25 06/05/25 History %) nasal spray Congestion loratadine 10 mg tablet (Claritin) 10 mg PO DAILY 06/05/25 06/05/25 History omeprazole 40 mg capsule,delayed 40 mg PO DAILYBB 06/05/25 06/05/25 History release topiramate 25 mg tablet 25 mg PO DAILY 06/05/25 06/05/25 History Patient History Medical History DJD (degenerative joint disease) Ovarian cyst Surgical History History of hysterectomy H/O wisdom tooth extraction History of facial surgery History of lumbar discectomy History of colonoscopy History of esophagogastroduodenoscopy (EGD) Social History Smoking Status: Never smoker Second Hand Exposure: No; Do You Dip or Chew Tobacco: No; Hx Alcohol Use: No Hx Substance Use: No Preferred Language: Faroese Communication Ability: Effective Strap Machine Operator Required: No Beliefs That Will Affect Care: None Current Living Situation: Spouse Feels Safe at Home: Yes Safety Concerns: Feels Safe At This Time Assistive Devices: None Review of Systems Review of Systems: Complete Review of Systems is as stated above, negative, or noncontributory Physical Exam Physical Exam: General: A&Ox3. NAD. Soft spoken HENT: Normocephalic. Atraumatic. Eyes: PER. Conjunctiva pink, sclera clear. Neck: No carotid bruits. No JVD. Heart: RRR. No murmur. No rub. Lungs: Clear to auscultation. Abdomen: +BS. Extremities: No clubbing, cyanosis, or edema. Limited neurological examination is without focal deficits. Pulses: Posterior tibial=2-3/4 on the left and 1-2/4 on the right. Results & Data Vital Signs (Past 12 Hours) Vital Signs Temp Pulse Pulse Pulse Resp BP BP 06/06/25 08:16 36.7 C 69 19 165/98 H 06/06/25 07:20 81 06/06/25 04:15 36.6 C 68 18 151/88 H 06/05/25 23:53 58 L 06/05/25 22:59 36.4 C L 56 L 16 169/90 H 06/05/25 21:30 68 14 156/87 H 06/05/25 21:25 69 19 BP Pulse Ox O2 Del Method 06/06/25 08:16 97 Room Air 06/06/25 07:20 06/06/25 04:15 98 Room Air 06/05/25 23:53 06/05/25 22:59 100 Room Air 06/05/25 21:30 99 Room Air 06/05/25 21:25 170/102 H 96 Room Air Laboratory Results Cardiac Enzymes 06/05/25 06/05/25 06/06/25 Range/Units 20:14 23:02 05:44 Troponin I High Sens 2.4 < 2.3 < 2.3 (0-14) pg/ml Coagulation 06/05/25 06/05/25 Range/Units 20:14 23:02 PT Cancelled 10.3 APTT Cancelled 26 Lipids 06/06/25 Range/Units 05:44 Triglycerides 109 (0-150) mg/dl Cholesterol 182 (0-200) mg/dl HDL Cholesterol 59 mg/dl Cholesterol/HDL Ratio 3.1 (0-5) CBC 06/05/25 06/05/25 06/06/25 Range/Units 20:14 20:45 05:44 WBC Cancelled 8.84 7.64 RBC Cancelled 4.41 4.12 L Hgb Cancelled 13.2 12.2 Hct Cancelled 39.5 36.7 L Plt Count Cancelled 339 309 Neut # (Auto) Cancelled 5.16 4.49 Lymph # (Auto) Cancelled 2.67 2.22 [place] # (Auto) Cancelled 0.64 H 0.61 H Eos # (Auto) Cancelled 0.32 0.27 Baso # (Auto) Cancelled 0.03 0.03 Comprehensive Metabolic Panel 06/05/25 06/06/25 Range/Units 20:14 05:44 Sodium 135 L 139 (136-145) mmol/L Potassium 3.4 L 3.9 (3.5-5.1) mmol/L Chloride 103 112 H (98-107) mmol/L Carbon Dioxide 20 L 21 (21-32) mmol/L BUN 17 15 (6-23) mg/dl Creatinine 0.78 0.73 (0.6-1.2) mg/dl Glucose 90 86 (70-99(Fasting)) mg/dl Calcium 9.9 8.5 L (8.6-10.3) mg/dl Intake and Output 06/05/25 06/06/25 06/06/25 22:59 06:59 14:59 Intake Total 1000 / 1000 Balance 1000 / 1000 Intake: IV 1000 / 1000 Sodium Chloride 0.9% 1,000 ml @ 1000 / 1000 999 mls/hr IV .Q1H1M STA Rx#: [id number] Other: Other Intake Source NPO Weight 95.5 kg Weight Measurement Method Standing Scale Standing Scale Diagnostic Findings Telemetry: Sinus with atrial and ventricular ectopy. PG Care Time/CCT Total # of Minutes Spent Total Time Spent with Patient: Total time spent is greater than 50% in coordination of care (as documented) at patient's floor/unit and/or counseling patient: Coding Level of Care Code 59722 IN/OBS CONSULT LVL 5,80M Diagnoses Chest pain at rest R07.9 Hypertensive urgency I16.0 Hypertension I10
[2025-06-06] MEDS ORDERED: LOSARTAN POTASSIUM 25 MG TAB PO SCH (09:30)
[2025-06-06] MEDS: CHOLECALCIFEROL 125 MCG (5,000 UNITS) TAB PO SCH (10:55)
[2025-06-06] MEDS: LORATADINE 10 MG TAB PO SCH (10:55)
[2025-06-06] MEDS: TOPIRAMATE 25 MG TAB PO SCH (10:55)
[2025-06-06] MEDS: ACETAMINOPHEN 325 MG TAB PO PRN (15:42)
[2025-06-06] MEDS: GABAPENTIN 300 MG CAP PO SCH (18:01)
[2025-06-06 23:36] VITALS: TEMP 98.2
[2025-06-07 05:01] VITALS: O2SAT 97
[2025-06-07 07:15] VITALS: PULSE 65; RESP 18
[2025-06-07 07:26] LABS: Hematocrit (blood only) 37.8 % (37.0-47.0); Hemoglobin 12.5 g/dl (12.0-16.0); Mean Corpuscular Hemoglobin 29.7 pg (25.0-34.0); Mean Corpuscular Volume 89.8 fL (80.0-100.0); Platelet Count 312 K/uL (130-400); RDW Standard Deviation 40.3 fL (36.4-46.3); Red Blood Count 4.21 M/uL (4.20-5.40); White Blood Count 5.71 K/ul (4.8-10.8)
[2025-06-07 07:45] LABS: Anion Gap 6.0 (3-11); Blood Urea Nitrogen 17.0 mg/dl (6-23); Calcium 8.6 mg/dl (8.6-10.3); Carbon Dioxide 20.0 mmol/L (21-32); Chloride 111.0 mmol/L (98-107); Creatinine Clr Calc Pharmacy 108.7 ml/min; Glucose 88.0 mg/dl (70-99(Fasting)); Magnesium 2.2 mg/dl (1.7-2.4); Potassium 4.0 mmol/L (3.5-5.1); Sodium 137.0 mmol/L (136-145)
--- NOTE | 2025-06-07 09:53 | Discharge Summary ---
Discharge Summary Date of Service June 07, 2025 Principal Dx & Hospital Course #1 = Principal Diagnosis (1) Chest pain: 50-year-old female with past medical history significant for mild intermittent asthma, hypertension, GERD, restless leg syndrome, lumbar degenerative disc disease, pseudotumor cerebri, persistent insomnia, depression with anxiety, family history of hemochromatosis comes because of chest pain. Around 7:30 PM when she was watching TV she noticed severe sharp and pressure-like feeling in the center of the chest radiating to the back and to the neck. Pain was associated with shortness of breath, dizziness, sweating and nausea. In the ER second nitro resolved her pain. Currently resting comfortably. Denies any headache. No runny nose or sore throat. She has chronic cough. No fevers. Currently no abdominal pain. Normal bowel and bladder movements. Hemodynamics are okay. Chest pain, Hypertensive urgency Resolved with nitro Initial EKG and two troponin unremarkable family history of Pe.d dimer negative. Lower extremity doppler negative. Monitor on telemetry Serial cardiac enzymes and echo Cardiology consulted - started pt on amlodipine 5 mg daily, plan for stress test Discussed with the pt her hypertension - pt says she tries to eat healthy, does not add extra salt, does not smoke, or drink alcohol, goes to the gym 5/week before work. Her BMI is 31 - pt says she lost 70 lbs on ozempic in the past. Then gained 30 lbs back after having hysterectomy. recommend weight management, consider resuming pt on ozempic again or ozempic-like drugs as outpt History of mild persistent asthma Currently stable History of restless leg syndrome On ropinirole and gabapentin GERD On omeprazole DVT prophylaxis SCDs for now Disposition med/telemetry Full code. HOSPITAL COURSE: Pt was admitted to the tele unit. Serial troponins ruled out ACS. Cardiology was consulted. Stress testing was negative for ischemia. She was placed on amlodipine for high BPs. She was discharged in stable condition. Notes For Next Care Provider Medication Changes From Visit Amlodipine 5 mg daily for HTN Admission HPI Per Admitting Provider 50-year-old female with past medical history significant for mild intermittent asthma, hypertension, GERD, restless leg syndrome, lumbar degenerative disc disease, pseudotumor cerebri, persistent insomnia, depression with anxiety, family history of hemochromatosis comes because of chest pain. Around 7:30 PM when she was watching TV she noticed severe sharp and pressure-like feeling in the center of the chest radiating to the back and to the neck. Pain was ass ociated with shortness of breath, dizziness, sweating and nausea. In the ER second nitro resolved her pain. Currently resting comfortably. Denies any headache. No runny nose or sore throat. She has chronic cough. No fevers. Currently no abdominal pain. Normal bowel and bladder movements. Hemodynamics are okay. Past medical history. As mentioned above Past surgical history. Colonoscopy. Cystoscopy. Dental surgery. EGD. Injection lumbosacral spine. Laparoscopic total hysterectomy with removal of tubes and ovaries. Lumbar hemilaminectomy. Reconstruction of cleft palate. Social history. . No smoking. Alcohol rarely. No drug use. Family history. Mother had anxiety. Hypertension. Pulmonary embolism. Father had hyperlipidemia. Hypertension. Discharge Exam General- adult female in NAD Head- atraumatic Eyes- PERRL, EOMI, anicteric Neck- supple, no JVD, no adenopathy, no thyromegaly; Lungs- clear to auscultation and percussion Heart- regular rhythm; no murmur, no gallop, no rub appreciated Abdomen- normal bowel sounds, soft, nontender, no masses or hepatosplenomegaly Extremities- no pretibial edema, no calf tenderness; peripheral pulses intact Neuro- alert, oriented x 3; PERRL, EOMI; no facial palsy; no dysarthria; Skin- warm & dry Updated Medication List Medication Instructions Recorded Confirmed Type lorazepam 1 mg tablet 1 mg PO HS PRN Sleep 11/20/20 06/05/25 History gabapentin 300 mg capsule 300 mg PO HS 09/16/23 06/05/25 History ropinirole 2 mg tablet 2 mg PO HS 09/16/23 06/05/25 History cholecalciferol (vitamin D3) 125 125 mcg PO DAILY 06/05/25 06/05/25 History mcg (5,000 unit) tablet (Vitamin D3) ipratropium bromide 42 mcg (0.06 1 spray intranasal BID PRN Nasal 06/05/25 06/05/25 History %) nasal spray Congestion loratadine 10 mg tablet (Claritin) 10 mg PO DAILY 06/05/25 06/05/25 History omeprazole 40 mg capsule,delayed 40 mg PO DAILYBB 06/05/25 06/05/25 History release topiramate 25 mg tablet 25 mg PO DAILY 06/05/25 06/05/25 History amlodipine 5 mg tablet 5 mg PO QAM #30 tabs 06/07/25 Rx Hospital Stay Data Consultations 06/05/25 20:58 ED Decision to Admit Stat 06/06/25 08:00 Consult Cardiology Routine Diagnostic Imagining Performed 06/05/25 21:30 US venous doppler LE BI Stat Pending Results Patient Have Any Pending Studies at Discharge: No Discharge Instructions Given to Patient (Per Discharging Provider) Check your BPs at home and record Start Amlodipine 5 mg daily by mouth for your high BP Total Time Total Time Spent Total Time Spent (In Minutes): 35 minutes
[2025-06-07 10:22] VITALS: BP 170/102
--- NOTE | 2025-06-09 14:24 | Electrocardiogram Report ---
Test Reason : Blood Pressure : */* mmHG Vent. Rate : 71 BPM Atrial Rate : 71 BPM P-R Int : 186 ms QRS Dur : 90 ms QT Int : 422 ms P-R-T Axes : 54 -4 19 degrees QTcB Int : 458 ms Normal sinus rhythm Minimal voltage criteria for LVH, may be normal variant Possible Inferior infarct , age undetermined Abnormal ECG When compared with ECG of 05-Jun-2025 20:03, (unconfirmed) No significant change was found Confirmed by Mir Caal ([id number]) on 06/09/2025 2:24:12 PM Referred By: REFERRED SELF Confirmed By: Mir Caal
--- NOTE | 2025-06-10 07:12 | Electrocardiogram Report ---
Test Reason : Blood Pressure : */* mmHG Vent. Rate : 77 BPM Atrial Rate : 77 BPM P-R Int : 148 ms QRS Dur : 94 ms QT Int : 422 ms P-R-T Axes : 45 -5 26 degrees QTcB Int : 477 ms Normal sinus rhythm Normal ECG When compared with ECG of 20-Nov-2020 10:42, No significant change Confirmed by Mir Caal ([id number]) on 06/10/2025 7:11:51 AM Referred By: REFERRED SELF Confirmed By: Mir Caal
== END 2025-06-07 11:11 | disposition home or self-care (01) ==
LOC: 2N 19:57 → ED 19:57 → SUATTDRO 21:33 → 2N 22:15